=== PATIENT | female | born 1955 | race Caucasian/White ===

== ENCOUNTER 2019-11-30 07:08 | Outpatient (CLI) | payer OTHER, SELFPAY ==
[2019-11-30 07:33] LABS: Basophils Absolute Auto 0.1 K/mm3 (0.0-0.1); Basophils Percent Auto 0.9 % (0.2-1.2); Eosinophils Absolute Auto 0.2 K/mm3 (0-0.3); Eosinophils Percent Auto 3.8 % (0-4.4); Hematocrit 35.6 % (37.0-47.0); Hemoglobin 11.3 g/dL (12.0-15.0); Immature Granulocyte Absolute 0.01 K/mm3 (0.00-0.031); Immature Granulocyte Percent A 0.2 % (0-0.5); Lymphocytes Percent Auto 41.5 % (18.3-44.2); Mean Corpuscular HGB Conc 31.7 g/dl (32-36); Mean Corpuscular Hemoglobin 25.2 pg (26-34); Mean Corpuscular Volume 79.3 fl (80-100); Mean Platelet Volume 9.7 fl (7.4-10.4); Monocytes Absolute Auto 0.6 K/mm3 (0.1-0.6); Monocytes Percent Auto 10.4 % (2.6-8.5); Neutrophils Absolute Auto 2.3 K/mm3 (1.3-6.7); Neutrophils Percent Auto 43.2 % (45.5-73.1); Platelet Count Result 320 k/mm3 (150-375); Red Blood Count 4.49 M/mm3 (4.2-5.4); Red Cell Distribution Width 16.6 % (11.5-14.5); White Blood Count 5.3 K/mm3 (4.5-10.0)
[2019-11-30 07:54] LABS: LDL Cholesterol Direct 141 mg/dL
[2019-11-30 08:15] LABS: Iron 27 ug/dL (37-170)
[2019-11-30 08:16] LABS: Alanine Aminotransferase 16 U/L (4-35); Albumin Level 4.2 g/dL (3.5-5.1); Alkaline Phosphatase 68 U/L (38-126); Anion Gap 9 mmol/L (8-16); Aspartate Amino Transferase 27 U/L (14-36); Bilirubin,Total 0.4 mg/dL (0.2-1.3); Blood Urea Nitrogen 18 mg/dL (7-17); Calcium 9.5 mg/dL (8.4-10.2); Carbon Dioxide 30 mmol/L (22-30); Chloride 101 mmol/L (98-107); Cholesterol 239 mg/dL (0-200); Estimated Glomerular Filt Rate > 60; Glucose 108 mg/dL (65-105); HDL Direct 51 mg/dL; Sodium 140 mmol/L (137-145); Triglycerides 131 mg/dL (<150)
[2019-11-30 08:17] LABS: Potassium 3.9 mmol/L (3.4-5.0)
[2019-11-30 08:25] LABS: Percent Iron Saturation 6 % (20-50)
[2019-11-30 08:47] LABS: Folic Acid 10.7 ng/mL (2.76->20)
== END 2019-11-30 07:09 | disposition home or self-care (01) ==
PROVIDERS: PCP Family Medicine; Visit Provider Family Medicine
DX: E78.5 Hyperlipidemia, unspecified (principal); I10 Essential (primary) hypertension; R53.83 Other fatigue
CPT/HCPCS: 36415; 80053; 80061; 82607; 82746; 83540; 83550; 84443; 85025

== ENCOUNTER 2019-12-14 08:19 | Outpatient (CLI) | payer OTHER, SELFPAY ==
--- NOTE | ~2019-12-14 | XR_ITS ---
XR UGIAC w barium swallow DATE: 12/14/2019 09:23 INDICATION: Diaphragmatic hernia TECHNIQUE: Air-contrast upper gastrointestinal series 0.8 minutes fluoroscopy time DAP: 33.62 73 images COMPARISON: None FINDINGS: There is normal deglutition. No stricture, mucosal fold thickening, erosion or ulceration, diverticulum or intraluminal mass lesion of the esophagus. There is a very small large sliding hiatal hernia, with virtually the entire stomach within the chest . No intraluminal mass lesion or mucosal fold thickening or ulceration of the stomach. The duodenal bulb is normally shaped. The proximal small bowel mucosal pattern is normal. . IMPRESSION: Very large sliding hiatal hernia with virtually the entire stomach in the chest Reviewed, dictated and finalized at [facility]. Reviewed, dictated and finalized at location A.
== END 2019-12-14 08:20 | disposition home or self-care (01) ==
PROVIDERS: PCP Family Medicine; Visit Provider Surgery
DX: K44.9 Diaphragmatic hernia without obstruction or gangrene (principal)
CPT/HCPCS: 74246

== ENCOUNTER 2019-12-16 09:37 | Outpatient (CLI) | payer OTHER, SELFPAY ==
--- NOTE | ~2019-12-16 | XR_ITS ---
EXAMINATION: XR chest 2V DATE: 12/16/2019 10:45 INDICATION: Diaphragmatic hernia without obstruction or gangrene. Preop. TECHNIQUE: Frontal and lateral views of the chest were obtained. COMPARISON: Chest 2 views 03/22/18 FINDINGS: There is a large hiatal hernia. There is mild atelectasis at left lung base. No pleural eff usion or pneumothorax. The heart size is normal. IMPRESSION: 1. Large hiatal hernia. 2. Mild atelectasis at left lung base. Reviewed, dictated and finalized at location [facility].
--- NOTE | 2019-12-16 10:00 | ECG_ITS ---
Measurements Intervals [place] Rate: 62 P: 28 ND: 157 QRS: -4 QRSD: 78 T: 29 QT: 405 QTc: 413 Interpretive Statements SINUS RHYTHM LOW QRS VOLTAGE IN PRECORDIAL LEADS POOR R WAVE PROGRESSION, ANTERIOR LEADS BASELINE ARTIFACT- III, AVF BORDERLINE ECG Electronically Signed On 12-16-2019 10:37:17 CDT by Kelechi Pereira D.O.
[2019-12-16 10:44] LABS: Basophils Percent Auto 0.5 % (0.2-1.2); Eosinophils Absolute Auto 0.1 K/mm3 (0-0.3); Eosinophils Percent Auto 1.9 % (0-4.4); Hematocrit 42.2 % (37.0-47.0); Immature Granulocyte Absolute 0.01 K/mm3 (0.00-0.031); Immature Granulocyte Percent A 0.2 % (0-0.5); Lymphocytes Absolute Auto 1.96 K/mm3 (0.9-3.2); Lymphocytes Percent Auto 33.6 % (18.3-44.2); Mean Corpuscular HGB Conc 30.8 g/dl (32-36); Mean Corpuscular Hemoglobin 25.7 pg (26-34); Mean Corpuscular Volume 83.6 fl (80-100); Mean Platelet Volume 9.4 fl (7.4-10.4); Monocytes Absolute Auto 0.4 K/mm3 (0.1-0.6); Monocytes Percent Auto 7.4 % (2.6-8.5); Neutrophils Absolute Auto 3.3 K/mm3 (1.3-6.7); Neutrophils Percent Auto 56.4 % (45.5-73.1); Platelet Count Result 337 k/mm3 (150-375); Red Blood Count 5.05 M/mm3 (4.2-5.4); Red Cell Distribution Width 19.9 % (11.5-14.5); White Blood Count 5.8 K/mm3 (4.5-10.0)
[2019-12-16 10:56] LABS: Anion Gap 8 mmol/L (8-16); Blood Urea Nitrogen 16 mg/dL (7-17); Calcium 9.4 mg/dL (8.4-10.2); Carbon Dioxide 31 mmol/L (22-30); Chloride 101 mmol/L (98-107); Estimated Glomerular Filt Rate > 60; Glucose 97 mg/dL (65-105); Potassium 3.7 mmol/L (3.4-5.0); Sodium 140 mmol/L (137-145)
== END 2019-12-16 09:38 | disposition home or self-care (01) ==
PROVIDERS: PCP Family Medicine; Visit Provider Surgery
DX: Z01.818 Encounter for other preprocedural examination (principal); K44.0 Diaphragmatic hernia with obstruction, without gangrene; I10 Essential (primary) hypertension; D64.9 Anemia, unspecified; R94.31 Abnormal electrocardiogram [ECG] [EKG]
CPT/HCPCS: 36415; 71046; 80048; 85025; 86850; 86900; 86901; 93005

== ENCOUNTER 2019-12-18 09:50 | Outpatient (CLI) | payer OTHER, SELFPAY ==
--- NOTE | ~2019-12-18 | CT_ITS ---
EXAMINATION: CT abdomen wo con DATE: 12/18/2019 10:27 INDICATION: Diaphragmatic hernia with obstruction TECHNIQUE: Computed tomography (CT) of the abdomen was performed without intravenous contrast. The do se-length product was 199.55 mGy-cm. Automated exposure control and iterative reconstruction techniqu e were employed. COMPARISON: CT dated 09/27/2012. FINDINGS: There is a large Bochdalek hernia with gastric volvulus. No evidence for obstruction. There are gallstones. Heart size normal. No significant pleural or pericardial effusion. Mild atherosclerosis without aneur ysm. There is nonobstructing left nephrolithiasis. The liver, spleen, pancreas, adrenal glands are un remarkable. Nonobstructive bowel gas pattern. No free air or free fluid. IMPRESSION: 1. Large Bochdalek hernia with gastric volvulus. No obstruction. 2: Nonobstructing left nephrolithiasis. 3: Cholelithiasis. Reviewed, dictated and finalized at location [facility]. 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
== END 2019-12-18 09:51 | disposition home or self-care (01) ==
PROVIDERS: PCP Family Medicine; Visit Provider Surgery
DX: K44.9 Diaphragmatic hernia without obstruction or gangrene (principal); K80.20 Calculus of gallbladder without cholecystitis without obstruction; N20.0 Calculus of kidney
CPT/HCPCS: 74150

== ENCOUNTER 2019-12-20 01:09 | Outpatient (CLI) | payer OTHER, SELFPAY ==
[2019-12-20 20:51] LABS: SARS-CoV-2 RNA PCR Negative
== END 2019-12-20 01:10 | disposition home or self-care (01) ==
LOC: ANHCOVIDDT 01:09
PROVIDERS: PCP Family Medicine; Visit Provider Surgery
DX: Z01.812 Encounter for preprocedural laboratory examination (principal); Z20.828 Contact with and (suspected) exposure to other viral communicable diseases
CPT/HCPCS: 87635; C9803; U0003

== ENCOUNTER 2019-12-23 13:33 | Observation (INO) | payer OTHER, SELFPAY ==
[2019-12-16 09:49] VITALS: BP 137/90; PULSE 77; RESP 16; TEMP 36.8; O2SAT 96; BMI 33.4
[2019-12-22] VITALS (13 sets, daily range): BP systolic 136–168; BP diastolic 79–99; PULSE 69–95; RESP 12–20; TEMP 35.6–36.6; O2SAT 92–100; BMI 32.3
--- NOTE | 2019-12-22 08:55 | WPDHPUPDATE1 ---
History and Physical Update Update Date/Time: 12/22/19 08:55 History and Physical has been reviewed, including an updated exam of the patient. There are NO changes in the patient's condition. Risks, benefits, and alternatives have been discussed and questions answered. Patient agrees to proceed with procedure.
[2019-12-22] MEDS: LACTATED RINGERS 1,000 ML 30 ML IV CONT ×2 (09:06→14:58)
--- NOTE | 2019-12-22 09:40 | WPDANESEPPF ---
Anes - Initial Pre Proc Eval Procedure: Operation Date: 12/22/19 10:30 Proposed Procedures p Laparoscopic Repair Paraesophageal Hiatal Hernia with Reagan Fundoplication - Champ Blackmon MD Date/Time: 12/22/19 09:40 Surgeon: Champ Blackmon MD Pre Op Diagnosis: parasophageal hiatal hernia with obstruction Patient Data Age: 64 Gender: F Height: 4 ft 10 in Weight: 70.6 kg Last Vital Signs Temp 36.5 C 12/22/19 09:18 Pulse 69 12/22/19 09:18 Resp 16 12/22/19 09:18 BP 151/89 H 12/22/19 09:18 Pulse Ox 100 12/22/19 09:18 Allergies Allergy/AdvReac Type Severity Reaction Status Date / Time No Known Allergies Allergy Verified 12/22/19 08:36 Home Medications Medication Instructions Recorded Confirmed Type ferrous sulfate 325 mg (65 mg 325 mg PO DAILY #90 tablet 11/30/19 12/22/19 Rx iron) tablet cholecalciferol (vitamin D3) 250 mcg PO DAILY 12/16/19 12/22/19 History [Vitamin D3] omeprazole 40 mg PO QAM 12/16/19 12/22/19 History quinapril-hydrochlorothiazide 1 tablet PO QAM 12/16/19 12/22/19 History raloxifene 60 mg PO DAILY 12/22/19 12/22/19 History Patient hx anesthesia problems: none Family hx anesthesia problems: none PMFSH Past Medical History Medical History Benign neoplasm of rectum Essential (primary) hypertension GERD (gastroesophageal reflux disease) Hiatal hernia Hyperlipidemia Non-cardiac chest pain Vitamin D deficiency, unspecified Surgical History Surgical History H/O unilateral oophorectomy History of S/P cataract surgery S/P ectopic S/P partial hysterectomy Family History Family History Mother Hypertension Patient's mother is in good health Acute myocardial infarction Father Patient's father is in good health Malignant neoplasm of prostate Family history of Parkinson's disease Patient's father is Grandparent Malignant neoplasm of prostate Family history of emphysema Family history of dementia Social History Social History Smoking status: Never smoker Second hand tobacco smoke exposure: No Alcohol intake: current Drinks per week: 1 Substance use: never Substance use type: does not use Living arrangements: with family Gender identity (if verbalized by the patient): Female Spiritual care concerns: No Agree to blood products: Yes Anes - Eval Final PreProcedure Day of Procedure 12/22/19 09:40 Patient weight: obese Heart: regular rate and rhythm Lungs: clear to auscultation Airway: Mallampati scale class II Neurological: alert and oriented Last oral intake: >/= 8 hours ASA classification: II Emergent: no Anesthetic plan: proceed Anesthesia type and monitoring: general ETT and standard monitoring Informed Consent: The patient's anesthetic plan and its attendant risks and benefits were discussed with the patient/family/POA. Questions were solicited and answers provided to the satisfaction of the patient/family/POA.
[2019-12-22] MEDS: ceFAZolin 2 GM/D5W 50 ML 2 GM/50 ML BAG IVPB (10:38)
[2019-12-22] MEDS: BUPIVACAINE/EPINEPHRINE 0.25% 50 ML VIAL INFILTRATE (12:24)
[2019-12-22] MEDS: fentaNYL CITRATE INJ (*CRX) 100 MCG/2 ML VIAL 25 MCG IV PUSH ×6 (15:04→15:40)
[2019-12-22] MEDS: hydrALAZINE HCL 20 MG/ML VIAL 10 MG IV PUSH (15:19)
--- NOTE | 2019-12-22 15:28 | PM.PROC ---
Procedure Note - Detailed Date of procedure: 12/22/19 Pre-op diagnosis: parasophageal hiatal hernia with obstruction Paraesophageal hiatal hernia with obstruction Post-op diagnosis: same Procedure performed: Repair paraesophageal hiatal hernia with Reagan fundoplication Description of procedure: The patient was taken to surgery and induced into general anesthesia. The entire abdomen was prepped and draped. Trocars were placed in the usual fashion. A Veress needle was used initially to insufflate. Then trocars were placed using direct visualization. We placed the liver retractor at the right lateral 12 mm port. The lateral segment of the left lobe of the liver was elevated to expose the diaphragmatic hernia. Most of the stomach was in the chest. About the lower 4th of the stomach was still in the abdomen. I used the LigaSure to divide the hepatogastric ligament and exposed the right nini. From there we placed traction on the stomach and reduced the stomach and the lesser omentum as much as possible. I then started some blunt dissection on the right side of the hernia. I brought a fair amount of the hernia sac down into the abdomen with this dissection. I then stopped and went to the left side. I took down a few adhesions of the greater omentum and brought more of the stomach and the greater omentum back into the abdomen. I then exposed the greater curvature the stomach and divided it from the omentum. This allowed entry into the lesser sac. I then continued to divide the short gastrics along the greater curvature of the stomach with the LigaSure. Eventually we went up to the cardia of the stomach and mobilized that as well. Now nearly all the stomach was in the abdomen. I exposed the hernia sac at the edges of the diaphragm and left nini. I gently pulled the hernia sac back through the diaphragm and then started dividing the edges of the hernia sac from the diaphragm and the left nini. Once I entered the mediastinum I was then able to dissect more the hernia sac back towards the abdomen. I eventually reduced all of the left side of the hernia sac. I went ahead and used the LigaSure to divide the hernia sac from the stomach and diaphragm. It was removed from the abdomen and discarded. I mobilized a bit of the lower esophagus during this part of the dissection as well. We then went back and looked at the right side of the hernia. There was still quite a bit of hernia sac here as well. I continued dissection of the hernia sac from the mediastinum bringing it down into the abdomen using primarily blunt dissection with occasional coagulation with the LigaSure. Once the hernia sac year was fully reduced, I divided it with the LigaSure and it was removed from the abdomen. It was discarded as well. I had stayed away from the esophagus during the dissection to avoid injury to the vagus nerves. At this point, I dissected more of the back of the stomach and esophagus from the posterior nini. We were able to pass a Adriel drain behind the esophagus. It was clipped to itself and was able to be used for retraction and elevation of the esophagus. At this point, I proceeded to dissect the esophagus from the mediastinum more fully. This was also done with the LigaSure and was essentially bloodless. We dissected very high up into the mediastinum to mobilize all of the esophagus. I recheck our esophageal length and it was now excellent. There was probably 6 or 7 cm of esophagus that was intra-abdominal. We then closed the 2 crura of the diaphragm with 0 Ethibond and the Endo Stitch device. These were interrupted suture. A small diaphragmatic defect was left for the esophagus. From there, the upper stomach was passed retrograde to the esophagus and the fundoplication was initially formed. I used the shoe shine technique to ensure there was no spiraling of the stomach on the esophagus. I clamped the fundoplication together in the position that it would be sutured. We
--- NOTE | 2019-12-22 16:28 | ADMGEN ---
This patient, Mary Mccrary, was admitted to Medical Room 340-01. Patient/family oriented to hospital policies and general routines including ID bracelet, bed and alarms, visiting hours, pain management, procedures, bathroom and other care routines, personal items, smoking policy, room service/diet, and visiting hours. Information on how to activate the Rapid Response Team has been discussed. Patient/Family are encouraged to report perceived risks to care and to ask questions if they do not understand what they are told or what they should do.
[2019-12-22] MEDS: hydroCHLOROthiazide 12.5 MG CAPSULE PO (17:09)
[2019-12-22] MEDS: lisinopriL 10 MG TABLET PO (17:09)
[2019-12-22] MEDS: HYDROcodone/acetaminophen (*CRX) 10-325 MG TABLET 1 TAB PO ×2 (17:09→22:53)
[2019-12-22] MEDS: MORPHINE SULFATE (*CRX) 2 MG/ML INJ 1 MG IV PUSH (18:32)
[2019-12-22] MEDS: ENOXAPARIN 30 MG/0.3 ML SYRINGE SUB-Q (20:40)
[2019-12-23] MEDS: MORPHINE SULFATE (*CRX) 4 MG/ML INJ 2 MG IV PUSH (05:28)
[2019-12-23 06:12] LABS: Hematocrit 36.6 % (37.0-47.0); Hemoglobin 11.7 g/dL (12.0-15.0); Mean Corpuscular Hemoglobin 26.7 pg (26-34); Mean Corpuscular Volume 83.6 fl (80-100); Mean Platelet Volume 10.2 fl (7.4-10.4); Platelet Count Result 273 k/mm3 (150-375); Red Blood Count 4.38 M/mm3 (4.2-5.4); Red Cell Distribution Width 20.3 % (11.5-14.5); White Blood Count 10.5 K/mm3 (4.5-10.0)
[2019-12-23 06:22] LABS: Anion Gap 6 mmol/L (8-16); Blood Urea Nitrogen 13 mg/dL (7-17); Calcium 8.5 mg/dL (8.4-10.2); Carbon Dioxide 29 mmol/L (22-30); Chloride 100 mmol/L (98-107); Estimated Glomerular Filt Rate > 60; Glucose 115 mg/dL (65-105); Potassium 3.5 mmol/L (3.4-5.0); Sodium 135 mmol/L (137-145)
[2019-12-23 06:36] VITALS: BP 132/79; PULSE 83; RESP 16; TEMP 36.2; O2SAT 92
--- NOTE | 2019-12-23 08:18 | WPDANESPN ---
Anes - Prog Note Post-Op Date/Time: 12/23/19 08:18 Cardiovascular status: normal Respiratory status: normal Airway patency: baseline Mental status: baseline Post-Op hydration status: normal Vital Signs: Last Vital Signs Temp 36.2 C L 12/23/19 06:36 Pulse 83 12/23/19 06:36 Resp 16 12/23/19 06:36 BP 132/79 12/23/19 06:36 Pulse Ox 92 12/23/19 06:36 Pain Score (VAS): 02/25 I/O: Intake & Output 12/22/19 12/23/19 12/23/19 23:59 07:59 15:59 Intake Total 25 Output Total 450 Balance 25 -450 Laboratory Tests 12/23/19 05:46 12/23/19 05:46 12/23/19 12/23/19 05:46 05:46 WBC 10.5 H RBC 4.38 Hgb 11.7 L Hct 36.6 L MCV 83.6 MCH 26.7 MCHC 32.0 RDW 20.3 H Plt Count 273 MPV 10.2 Sodium 135 L Potassium 3.5 Chloride 100 Carbon Dioxide 29 Anion Gap 6 L BUN 13 Creatinine 0.80 Estim Creat Clear Calc Not Reportable Estimated GFR > 60 Glucose 115 H Calcium 8.5 Post-procedural complaints: none Patient Feedback: Patient satisfied with anesthetic care.
[2019-12-23] MEDS: ENOXAPARIN 30 MG/0.3 ML SYRINGE SUB-Q ×2 (08:57→20:48)
[2019-12-23] MEDS: RALOXIFENE HCL (*CHEMO) 60 MG TABLET PO (08:57)
[2019-12-23] MEDS: PANTOPRAZOLE 40 MG TABLET PO (08:57)
[2019-12-23] MEDS: hydroCHLOROthiazide 12.5 MG CAPSULE PO (08:57)
[2019-12-23] MEDS: lisinopriL 10 MG TABLET PO (08:57)
[2019-12-23 10:00] VITALS: BP 124/68; PULSE 75; RESP 16; TEMP 36; O2SAT 95
[2019-12-23] MEDS: HYDROcodone/acetaminophen (*CRX) 5-325 MG TABLET 1 TAB PO (11:19)
--- NOTE | 2019-12-23 13:04 | PM.PNGS ---
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 Laparoscopic repair paraesophageal hiatal hernia. Will slowly advance diet. Ambulate today and stop IV fluids. If continues to improve, should be okay to discharge tomorrow. Discussed instructions with her for post discharge. Also explained that she will likely encountered dysphagia. (2) Iron deficiency anemia: Qualifiers: Iron deficiency anemia type: unspecified iron deficiency Qualified Code(s): D50.9 - Iron deficiency anemia, unspecified Code(s): D50.9 - Iron deficiency anemia, unspecified Status: Chronic Assessment and Plan: Will continue patient on ferrous sulfate. H&H slightly lower postop at this likely due to dilutional effects. Recheck again tomorrow. Subjective Subjective Date/Time Seen: 12/23/19 13:04 Post Op day: 1 Patient reports: feels better, pain is less, tolerating liquids well and no bowel movement Exam GI: Inspection: non-distended and incision (Incisions dry in all healing well) GI Palp: Yes Soft to palpation, Yes Tenderness to palpation present (GI) (Mild) and No Palpable mass present Auscultation: normal bowel sounds Objective Data Vital Signs Vital Signs: Vital Signs - 24 hr 12/22/19 14:38 12/22/19 14:50 12/22/19 15:05 Temperature 36.6 C Pulse Rate 88 95 86 Respiratory Rate 18 20 18 Blood Pressure 163/93 H 160/99 H 168/95 H Pulse Oximetry 97 99 99 12/22/19 15:20 12/22/19 15:35 12/22/19 15:50 Temperature Pulse Rate 86 77 94 Respiratory Rate 12 12 20 Blood Pressure 157/93 H 138/88 136/82 Pulse Oximetry 99 97 94 12/22/19 16:00 12/22/19 16:15 12/22/19 16:45 Temperature 35.6 C L 35.9 C L 35.9 C L Pulse Rate 95 90 90 Respiratory Rate 18 18 18 Blood Pressure 154/84 H 161/85 H 153/85 H Pulse Oximetry 95 95 93 12/22/19 17:45 12/22/19 20:14 12/22/19 21:45 Temperature 35.9 C L 36.6 C Pulse Rate 90 89 Respiratory Rate 18 16 Blood Pressure 145/81 H 143/79 H Pulse Oximetry 92 92 94 12/23/19 06:36 12/23/19 10:00 Temperature 36.2 C L 36.0 C L Pulse Rate 83 75 Respiratory Rate 16 16 Blood Pressure 132/79 124/68 Pulse Oximetry 92 95 Intake/Output Intake/Output: Intake & Output 12/20/19 12/21/19 12/22/19 12/23/19 23:59 23:59 23:59 23:59 Intake Total 525 1260 Output Total 1050 Balance 525 210 Meds/Results Medications: Active Medications Generic Name Dose Route Start Last Admin Trade Name Freq PRN Reason Stop Dose Admin Acetaminophen 500 mg 12/22/19 15:51 Acetaminophen 500 Mg Tablet PO Q6H PRN Mild Pain (1-3) or Fever Hydrocodone Bitart/Acetaminophen 1 tab 12/22/19 15:51 12/23/19 11:19 Hydrocodone/Acetaminophen (*Crx) 5-325 Mg Tablet PO 1 tab Q4H PRN Administration Pain Rated 4-6 Hydrocodone Bitart/Acetaminophen 1 tab 12/22/19 15:51 12/22/19 22:53 Hydrocodone/Acetaminophen (*Crx) 10-325 Mg Tablet PO 1 tab Q6H PRN Administration Pain Rated 7-10 Diphenhydramine HCl 25 mg 12/22/19 15:51 Diphenhydramine Hcl Inj 50 Mg/Ml Vial IV PUSH Q6H PRN Itching Enoxaparin Sodium 30 mg 12/22/19 21:00 12/23/19 08:57 Enoxaparin 30 Mg/0.3 Ml Syringe SUB-Q 30 mg Q12HR KEREN Administration Hydrochlorothiazide 12.5 mg 12/22/19 17:00 12/23/19 08:57 Hydrochlorothiazide 12.5 Mg Capsule PO 01/22/20 17:01 12.5 mg QAM KEREN Administration Lisinopril 10 mg 12/22/19 17:00 12/23/19 08:57 Lisinopril 10 Mg Tablet PO 10 mg QAM KEREN Administration Morphine Sulfate 1 mg 12/22/19 15:51 12/22/19 18:32 Morphine Sulfate (*Crx) 2 Mg/Ml Inj IV PUSH 1 mg Q2H PRN Administration Pain Rated 4-6 Morphine Sulfate 2 mg 12/22/19 15:51 12/23/19 05:28 Morphine Sulfate (*Crx) 4 Mg/Ml Inj IV PUSH 2
[2019-12-23 14:00] VITALS: BP 134/76; PULSE 79; RESP 16; TEMP 35.9; O2SAT 96
[2019-12-23] MEDS: HYDROcodone/acetaminophen (*CRX) 10-325 MG TABLET 1 TAB PO ×2 (16:48→22:50)
[2019-12-23 20:41] VITALS: BP 144/76; PULSE 84; RESP 16; TEMP 36.6; O2SAT 94
[2019-12-24 04:00] VITALS: BP 137/79; PULSE 76; RESP 16; TEMP 36.6; O2SAT 95
[2019-12-24] MEDS: HYDROcodone/acetaminophen (*CRX) 5-325 MG TABLET 1 TAB PO ×2 (04:57→09:48)
[2019-12-24 06:51] LABS: Hematocrit 37.6 % (37.0-47.0); Mean Corpuscular HGB Conc 31.9 g/dl (32-36); Mean Corpuscular Hemoglobin 26.7 pg (26-34); Mean Corpuscular Volume 83.6 fl (80-100); Mean Platelet Volume 10.7 fl (7.4-10.4); Platelet Count Result 268 k/mm3 (150-375); Red Cell Distribution Width 20.5 % (11.5-14.5); White Blood Count 9.4 K/mm3 (4.5-10.0)
[2019-12-24 07:13] LABS: Anion Gap 3 mmol/L (8-16); Blood Urea Nitrogen 9 mg/dL (7-17); Calcium 8.9 mg/dL (8.4-10.2); Carbon Dioxide 35 mmol/L (22-30); Chloride 97 mmol/L (98-107); Estimated Glomerular Filt Rate > 60; Glucose 105 mg/dL (65-105); Potassium 3.5 mmol/L (3.4-5.0); Sodium 135 mmol/L (137-145)
[2019-12-24] MEDS: hydroCHLOROthiazide 12.5 MG CAPSULE PO (08:00)
[2019-12-24] MEDS: PANTOPRAZOLE 40 MG TABLET PO (08:00)
[2019-12-24] MEDS: RALOXIFENE HCL (*CHEMO) 60 MG TABLET PO (08:00)
[2019-12-24] MEDS: lisinopriL 10 MG TABLET PO (08:00)
[2019-12-24] MEDS: ENOXAPARIN 30 MG/0.3 ML SYRINGE SUB-Q (08:00)
--- NOTE | 2019-12-24 09:43 | PM.DS ---
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 Blackmon in 2 wks DS: Summary Hospital Course Reason for hospitalization: paraesophageal hernia c obstruction Hospital Course: The patient presented on 12/21 for repair of obstructed paraesophageal hernia. Patient was taken to the operating room and paraesophageal hernia repair as well as Reagan fundoplication were done by Dr. Blackmon. Please see full operative report for details of that procedure. Postoperatively the patient has done very well. She is tolerating a regular diet at this time and her pain is well controlled with p.o. analgesia. The patient will be sent home with routine postoperative care instructions and follow-up with Dr. Blackmon in 2 weeks. Status at Discharge Functional status at discharge: independent ambulation Overall status at discharge: patient is progressing back to baseline Time Spent with Patient Time attestation: Total time spent providing and/or coordinating discharge services: Time spent: Less than 30 minutes Exam Const: General: cooperative, healthy appearing, comfortable and no acute distress Orientation/consciousness: patient oriented x3 Resp: Effort & Inspection: normal respiratory effort Auscultation: clear to auscultation bilaterally Cardio: Rate: regular rate Rhythm: regular rhythm GI: Inspection: normal to inspection and incision GI Palp: Yes abdominal tenderness, Yes Soft to palpation, Yes Tenderness to palpation present (GI) and No Guarding due to palpation present (GI) Other: soft, sl dist, shyam TTP, incisions C/D/I DS: Data Data Completed and Pending Labs on day of discharge: Labs from last 24 hours 12/24/19 12/24/19 06:27 06:27 WBC 9.4 RBC 4.50 Hgb 12.0 Hct 37.6 MCV 83.6 MCH 26.7 MCHC 31.9 L RDW 20.5 H Plt Count 268 MPV 10.7 H Sodium 135 L Potassium 3.5 Chloride 97 L Carbon Dioxide 35 H Anion Gap 3 L BUN 9 Creatinine 0.70 Estim Creat Clear Calc Not Reportable Estimated GFR > 60 Glucose 105 Calcium 8.9 Discharge Plan Discharge Attending physician on discharge: Myesha Guzman Discharging Clinician: Myesha Guzman Anticipated Discharge Date/Time: 12/24/19 09:42 Patient Disposition: Home, Self-Care Activity: may shower and other - see discharge instructions Diet: as tolerated Wound Care Instructions: follow printed instructions Discharge Instructions: 1. May shower and wash wounds with soap and water after discharge. 2. Call office for: -Wound increasingly painful or bleeding -Vomiting -Fever of greater than 101 degrees 3. Expect some blood on dressing and old blood on skin. 4. If no bowel movement for three days, take 1 oz. (30 ml) Milk of Magnesia, if no results, take Fleets enema. 5. No heavy lifting > 15-20 pounds for 2 weeks. 6. No driving for 3 days or while taking narcotic pain medications. 7. Up walking 10-30 minutes three times per day. 8. Resume previous home medications. 9. Follow-up 10-14 days in office for wound check or as previously scheduled. 10. Oral pain medications prescription to be sent home with patient. 11. NUTRITION: Start out by drinking fluids and increase your diet as tolerated. If you experience nausea, try dry toast, crackers, and 7-UP. If nausea or vomiting persists, contact your surgeon?s office. 12. Okay to slowly advance to regular diet but chew food slowly, small bites, small amounts. May need to eat more frequently than 3
== END 2019-12-24 12:25 | disposition home or self-care (01) ==
LOC: ANHSURGERY 16:57 → ANH3MED 12-24 01:42
PROVIDERS: Admitting Provider Surgery; PCP Family Medicine; Visit Provider Surgery
PROC: 0DV44ZZ Restriction of Esophagogastric Junction, Percutaneous Endoscopic Approach (ICD-10-PCS; CPT 43281; principal; 2019-12-22 10:30)
DX: K44.0 Diaphragmatic hernia with obstruction, without gangrene (principal); I10 Essential (primary) hypertension; D50.9 Iron deficiency anemia, unspecified; K21.9 Gastro-esophageal reflux disease without esophagitis; E78.5 Hyperlipidemia, unspecified; E55.9 Vitamin D deficiency, unspecified; Z79.899 Other long term (current) drug therapy
CPT/HCPCS: 43281; 36415; 80048; 85027; A9270; C1713; G0378; J0360; J0690; J1650; J2250; J2270; J2704; J3010; J7120

== ENCOUNTER 2020-02-27 12:44 | Outpatient (CLI) | payer OTHER, SELFPAY ==
[2020-02-27 13:40] LABS: Basophils Absolute Auto 0.1 K/mm3 (0.0-0.1); Basophils Percent Auto 0.9 % (0.2-1.2); Eosinophils Absolute Auto 0.2 K/mm3 (0-0.3); Eosinophils Percent Auto 3.1 % (0-4.4); Hematocrit 41.2 % (37.0-47.0); Hemoglobin 13.7 g/dL (12.0-15.0); Immature Granulocyte Absolute 0.01 K/mm3 (0.00-0.031); Immature Granulocyte Percent A 0.2 % (0-0.5); Lymphocytes Absolute Auto 2.39 K/mm3 (0.9-3.2); Lymphocytes Percent Auto 36.8 % (18.3-44.2); Mean Corpuscular HGB Conc 33.3 g/dl (32-36); Mean Corpuscular Hemoglobin 27.8 pg (26-34); Mean Corpuscular Volume 83.6 fl (80-100); Mean Platelet Volume 10.5 fl (7.4-10.4); Monocytes Absolute Auto 0.4 K/mm3 (0.1-0.6); Monocytes Percent Auto 5.7 % (2.6-8.5); Neutrophils Absolute Auto 3.5 K/mm3 (1.3-6.7); Neutrophils Percent Auto 53.3 % (45.5-73.1); Platelet Count Result 289 k/mm3 (150-375); Red Blood Count 4.93 M/mm3 (4.2-5.4); White Blood Count 6.5 K/mm3 (4.5-10.0)
[2020-02-27 13:59] LABS: Alanine Aminotransferase 18 U/L (4-35); Albumin Level 4.1 g/dL (3.5-5.1); Alkaline Phosphatase 64 U/L (38-126); Anion Gap 8 mmol/L (8-16); Aspartate Amino Transferase 33 U/L (14-36); Bilirubin,Total 0.3 mg/dL (0.2-1.3); Blood Urea Nitrogen 11 mg/dL (7-17); Calcium 9.1 mg/dL (8.4-10.2); Carbon Dioxide 27 mmol/L (22-30); Chloride 104 mmol/L (98-107); Estimated Glomerular Filt Rate > 60; Glucose 130 mg/dL (65-105); Potassium 3.6 mmol/L (3.4-5.0); Sodium 139 mmol/L (137-145)
== END 2020-02-27 12:45 | disposition home or self-care (01) ==
PROVIDERS: PCP Family Medicine; Visit Provider Family Medicine
DX: R19.7 Diarrhea, unspecified (principal)
CPT/HCPCS: 36415; 80053; 84443; 85025; 87045; 87046; 87324; 87427

== ENCOUNTER → 2020-03-14 09:53 | Outpatient (CLI) | payer OTHER, SELFPAY ==
--- NOTE | ~2020-03-14 | US_ITS ---
EXAMINATION: US abdomen complete EXAM DATE: 03/14/2020 10:17 INDICATION: Diarrhea, abdominal pain. TECHNIQUE: Multiple grayscale and Doppler images of the complete abdomen were obtained (by a technolo gist who performed the scan) and subsequently reviewed. Comparison is made to prior examination from 05/09/2013. FINDINGS: The abdominal aorta is normal in caliber. Visualized portion IVC is patent. The pancreatic head a nd body are normal in appearance. The pancreatic tail is not visualized. The liver has normal echogenicity and contour. There are no focal liver lesions identified. There is no evidence of intrahepatic biliary duct dilation. Portal venous flow was seen in the hepatopedal , normal direction and has normal Doppler waveform. Common bile duct measures 5 mm, which is normal. The gallbladder wall is normal in thickness, with ex pected amount of distention. No sonographic evidence of pericholecystic fluid. Stone filled gallbla dder. Technologist performing exam reports patient did not demonstrate sonographic Valverde's sign. P dominguez note that this sign is less reliable in patients who have received pain medication. Right kidney: There is normal contour and echogenicity. It measures 8.0 x 3.5 x 4.5 centimeters. T here are no focal renal lesions identified. There is no hydronephrosis. Left kidney: There is normal contour and echogenicity. It measures 9.7 x 4.6 x 4.3 centimeters. Th ere are no focal renal lesions identified. There is no hydronephrosis. The spleen measures 8.7 centimeters and is morphologically normal. IMPRESSION: Cholelithiasis. Reviewed, dictated and finalized at location A. HAND IMPRESSION: Cholelithiasis.
== END ==
PROVIDERS: PCP Family Medicine; Visit Provider Family Medicine
DX: R19.7 Diarrhea, unspecified (principal); K80.20 Calculus of gallbladder without cholecystitis without obstruction
CPT/HCPCS: 76700

== ENCOUNTER 2020-04-15 00:01 | Observation (INO) | payer OTHER, SELFPAY ==
--- NOTE | ~2020-04-15 | XR_ITS ---
XR abdomen NG/feed tube insert DATE: 04/15/2020 04:18 INDICATION: NG tube placement TECHNIQUE: Portable upright AP view on April 15, 2020 at 0417 hours COMPARISON: None FINDINGS: A nasogastric tube is coiled once in the body of the stomach. Bilateral renal excretion of contrast material is noted from earlier CT abdomen pelvis examination. IMPRESSION: NG tube in stomach Reviewed, dictated and finalized at [facility]. Reviewed, dictated and finalized at [facility]. STERED NURSE FLOAT POOL IMPRESSION: NG tube in stomach
--- NOTE | ~2020-04-15 | CT_ITS ---
EXAMINATION: CT abdomen pelvis w con DATE: 04/15/2020 02:05 INDICATION: Abdominal pain. TECHNIQUE: Computed tomography (CT) of the abdomen and pelvis was performed with 100 mL Omnipaque 350 intravenous contrast. Automated exposure control and iterative reconstruction technique were employe d. The dose-length product was 354.12 mGy-cm. COMPARISON: CT abdomen 12/18/2019 FINDINGS: The visualized portions of the lung bases demonstrate mild atelectasis. A calcified right l funmilayo nodule is consistent with old granulomatous disease. There is a 5 mm nodule in left lower lobe th at is new. No pleural effusion. The heart size is normal. No pericardial effusion. There are changes of fundoplication of the stomach. The liver demonstrates a 1.9 cm mass in right hepatic lobe without change in size, likely benign. There are gallstones in the gallbladder, which is normal in size. The spleen, pancreas, adrenal glands, and right kidney are normal. There is a 5 mm stone in left kidney. There is a right inguinal hernia containing fat. There is diverticulosis of the colon without evidenc e of diverticulitis. The appendix is not visualized. There are multiple dilated loops of small bowel without focal transition point. There is an umbilical hernia containing fat. There are no pathologica lly enlarged lymph nodes. There is no free intraperitoneal fluid. There is severe lumbar and lower th oracic spondylosis. There is a chronic compression fracture of L1. IMPRESSION: 1. Dilated small bowel without focal transition point, consistent with adynamic ileus versus partial small bowel obstruction. 2. 5 mm pulmonary nodule, probably benign. Noncontrast chest CT is recommended in 6 months. Reviewed, dictated and finalized at [facility]. [employer]
[2020-04-15 00:19] VITALS: BP 135/91; PULSE 73; RESP 18; TEMP 36.4; O2SAT 98
[2020-04-15 00:23] LABS: Basophils Absolute Auto 0.1 K/mm3 (0.0-0.1); Basophils Percent Auto 0.5 % (0.2-1.2); Eosinophils Absolute Auto 0.3 K/mm3 (0-0.3); Eosinophils Percent Auto 2.7 % (0-4.4); Hematocrit 41.9 % (37.0-47.0); Hemoglobin 13.7 g/dL (12.0-15.0); Immature Granulocyte Absolute 0.02 K/mm3 (0.00-0.031); Immature Granulocyte Percent A 0.2 % (0-0.5); Lymphocytes Percent Auto 22.5 % (18.3-44.2); Mean Corpuscular HGB Conc 32.7 g/dl (32-36); Mean Corpuscular Hemoglobin 29.5 pg (26-34); Mean Corpuscular Volume 90.1 fl (80-100); Mean Platelet Volume 9.9 fl (7.4-10.4); Monocytes Absolute Auto 0.7 K/mm3 (0.1-0.6); Monocytes Percent Auto 6.8 % (2.6-8.5); Neutrophils Absolute Auto 7.2 K/mm3 (1.3-6.7); Neutrophils Percent Auto 67.3 % (45.5-73.1); Platelet Count Result 274 k/mm3 (150-375); Red Blood Count 4.65 M/mm3 (4.2-5.4); Red Cell Distribution Width 16.3 % (11.5-14.5); White Blood Count 10.7 K/mm3 (4.5-10.0)
--- NOTE | 2020-04-15 00:23 | ED.GENADULT ---
HPI - General Adult General Chief complaint: Abdominal Pain Stated complaint: gallbladder attack Time Seen by Provider: 04/15/20 00:03 Source: RN notes reviewed History of Present Illness HPI narrative: Patient presents to emergency department from home for abdominal pain. Patient states that pain began this evening is located across the bilateral upper abdomen was worse in the right upper quadrant described as sharp and stabbing. States that at that time she taken Tylenol and ibuprofen and that has helped with the pain she denies having nausea vomiting or diarrhea with the symptoms states she does have a history of gallstones and believes she is having a gallbladder attack she denies any fever chills chest pain shortness of breath or any other symptoms Related Data Home Medications Medication Instructions Recorded Confirmed cholecalciferol (vitamin D3) 250 mcg PO DAILY 12/16/19 03/27/20 [Vitamin D3] raloxifene 60 mg PO DAILY 12/22/19 03/27/20 Allergies Allergy/AdvReac Type Severity Reaction Status Date / Time No Known Allergies Allergy Verified 03/27/20 10:13 Review of Systems Review of Systems: Narrative: Gen.: Denies fevers or chills ENT: Denies congestion Respiratory: Denies shortness of breath or cough CV: Denies chest pain or palpitations GI: See HPI Musculoskeletal: Denies back pain or muscle pain Neuro: Denies numbness, tingling, weakness or focal weakness Skin: Denies rash Except as documented, all other systems reviewed and negative [facility] Past Medical History Medical History Benign neoplasm of rectum BMI 33.0-33.9,adult Essential (primary) hypertension GERD (gastroesophageal reflux disease) Hiatal hernia Hyperlipidemia Non-cardiac chest pain Vitamin D deficiency, unspecified Surgical History Surgical History H/O unilateral oophorectomy History of History of repair of hiatal hernia 12/22/19: Paraesophageal hiatal hernia repair S/P cataract surgery S/P ectopic S/P partial hysterectomy Family History Family History Mother Hypertension Patient's mother is in good health Acute myocardial infarction Father Patient's father is in good health Malignant neoplasm of prostate Family history of Parkinson's disease Patient's father is Grandparent Malignant neoplasm of prostate Family history of emphysema Family history of dementia Social History Social History Smoking status: Never smoker Second hand tobacco smoke exposure: No Alcohol intake: never Drinks per week: 1 Substance use: never Substance use type: does not use Gender identity (if verbalized by the patient): Female Spiritual care concerns: No Agree to blood products: Yes Exam Narrative: Exam Narrative: APPEARANCE: No acute distress, nontoxic, resting in bed HEENT: Normocephalic, atraumatic, OMM RESPIRATORY: No respiratory distress, clear to auscultation bilaterally with no rhonchi wheezing or rales CARDIOVASCULAR: RRR s murmur ABDOMINAL: Soft, nondistended, tender palpation epigastric and right upper quadrant no tenderness left lower quadrant left lower quadrant lower quadrant no rebound or guarding MUSCULOSKELETAl: Moves all extremities. No clubbing, cyanosis or edema. NEURO: Awake and alert. Following commands, speech normal, no focal deficits SKIN:: Warm, dry. Normal Color PSYCHIATRIC: Normal affect/mood Course Course Emergency Course: Discussed with Dr. Guzman for general surgery presentation work-up. Agrees with admission his service with NG tube Discussed with patient and family results of workup and diagnosis. Discussed need for admission. Patient and family understand and agree to current treatment plan Vital Signs Vital signs: Vital Signs T
[2020-04-15 00:27] LABS: Add Urine Microscopic? YES; Appearance Urine Clear (Clear); Bacteria Urine Trace /hpf; Bilirubin Urine Negative (Negative); Blood Urine Negative (Negative); Calcium Oxalate Crystals Urine Many /hpf; Color Urine Yellow (Yellow); Glucose Urine UA Negative (Negative); Ketones Urine Negative (Negative); Leukocyte Esterase Ur 2+ LEU/UL (Negative); Mucus Urine Rare /lpf; Nitrate Urine Negative (Negative); Protein Urine Negative (Negative); Specific Grav Ur 1.031 (1.001-1.035); Squamous Epithelial Cell Urine Moderate /hpf (Few); Urobilinogen Urine Negative mg/dL (<2.0); WBC Urine 31-50 /hpf
[2020-04-15 00:35] LABS: Alanine Aminotransferase 29 U/L (4-35); Albumin Level 4.2 g/dL (3.5-5.1); Alkaline Phosphatase 88 U/L (38-126); Anion Gap 6 mmol/L (8-16); Aspartate Amino Transferase 44 U/L (14-36); Bilirubin,Total 0.4 mg/dL (0.2-1.3); Blood Urea Nitrogen 24 mg/dL (7-17); Carbon Dioxide 29 mmol/L (22-30); Chloride 101 mmol/L (98-107); Estimated Glomerular Filt Rate > 60; Glucose 112 mg/dL (65-105); Potassium 3.7 mmol/L (3.4-5.0); Sodium 136 mmol/L (137-145)
[2020-04-15 00:49] LABS: Lipase 155 U/L (23-300)
[2020-04-15 02:41] VITALS: BP 122/83; PULSE 82; RESP 18; O2SAT 98
[2020-04-15 03:45] LABS: Lactic Acid Reflex 1.1 mmol/L (0.7-2.1)
[2020-04-15] MEDS: LIDOCAINE HCL 2% VISC SOLN 15 ML UDC (03:55)
[2020-04-15] MEDS: PANTOPRAZOLE SODIUM IV 40 MG VIAL IV PUSH (03:55)
[2020-04-15 04:14] VITALS: BP 159/100; PULSE 85; RESP 18; O2SAT 98
[2020-04-15 05:10] VITALS: BP 170/94; PULSE 83; RESP 16; TEMP 36.2; O2SAT 98; BMI 29.0
--- NOTE | 2020-04-15 05:10 | ADMGEN ---
This patient, Mary Mccrary, was admitted to [facility] Surg Room 303-01. Patient/family oriented to hospital policies and general routines including ID bracelet, bed and alarms, visiting hours, pain management, procedures, bathroom and other care routines, personal items, smoking policy, room service/diet, and visiting hours. Information on how to activate the Rapid Response Team has been discussed. Patient/Family are encouraged to report perceived risks to care and to ask questions if they do not understand what they are told or what they should do.
[2020-04-15 09:10] VITALS: PULSE 80; RESP 18; O2SAT 98
--- NOTE | 2020-04-15 09:20 | PM.IMHP ---
H&P: HPI History of Present Illness Date/Time: 04/15/20 09:20 Chief Complaint: SBO Narrative: Mary Mccrary is a 64 year old female presenting to ED c/o severe crampy abd pain associated c N/V. Pt reports she had been having issues c diarrhea prior to this episode and had taken some probiotics. Pt reports no bowel fxn since early in the week. Pt denies previous episodes. Workup in ED, including imaging significant for SBO. Pt admitted and NG decompression, bowel rest, IV hydration initiated. Pt feels much improved this am, and has began to pass flatus. Pt reports abd cramping, pain largely resolved. Review of Systems Constitutional: Constitutional: Reports anorexia, Denies chills, Reports fatigue, Denies fever(s), Denies headache(s), Denies increased appetite, Reports lethargy, Denies malaise, Reports poor appetite, Reports weakness, Denies weight gain and Denies weight loss Eyes: Eyes: Reports no additional eye complaints ENT: Reports system reviewed and no additional complaints, except as documented Cardiovascular: Cardiovascular: Reports no additional cardiovascular complaints Respiratory: Respiratory: Reports no additional respiratory complaints Gastrointestinal: Gastrointestinal: Reports as per HPI Genitourinary: Genitourinary: Reports no additional female genitourinary complaints Musculoskeletal: Musculoskeletal: Reports no additional musculoskeletal complaints Integumentary/Breasts: Skin/Breast: Reports system reviewed and no additional complaints, except as docu Neurologic: Reports system reviewed and no additional complaints, except as documented Psychiatric: Psychiatric: Reports no additional psychiatric complaints Endocrine: Endocrine: Reports no additional endocrine complaints Hematologic/Lymphatic: Hematologic/Lymphatic: Reports no additional hematologic/lymphatic complaints Allergic/Immunologic: Allergic/Immunologic: Reports no additional allergic/immunologic complaints [facility] Past Medical History Medical History Benign neoplasm of rectum BMI 33.0-33.9,adult Essential (primary) hypertension GERD (gastroesophageal reflux disease) Hiatal hernia Hyperlipidemia Non-cardiac chest pain Vitamin D deficiency, unspecified Surgical History Surgical History H/O unilateral oophorectomy History of History of repair of hiatal hernia 12/22/19: Paraesophageal hiatal hernia repair S/P cataract surgery S/P ectopic S/P partial hysterectomy Family History Family History Mother Hypertension Patient's mother is in good health Acute myocardial infarction Father Patient's father is in good health Malignant neoplasm of prostate Family history of Parkinson's disease Patient's father is Grandparent Malignant neoplasm of prostate Family history of emphysema Family history of dementia Social History Social History Smoking packs per day: 0 Smoking cigarettes per day: 0.0 Years smoked: 0 Smoking pack-years: 0.00 Smoking status: Never smoker Second hand tobacco smoke exposure: No Alcohol intake: never Drinks per week: 1 Substance use: never Substance use type: does not use Gender identity (if verbalized by the patient): Female Sexual Orientation (if Verbalized by the Patient): Straight or Heterosexual Spiritual care concerns: No Agree to blood products: Yes Meds Home Medications and Allergies Home Medications Medication Instructions Recorded Confirmed Type cholecalciferol (vitamin D3) 250 mcg PO DAILY 12/16/19 04/15/20 History [Vitamin D3] raloxifene 60 mg PO DAILY 12/22/19 04/15/20 History quinapril 10 See Rx Instructions .ROUTE 03/12/20 04/15/20 Rx mg-hydrochlorothiazide 12.5 mg .COMPLEX #90 tablet tablet
[2020-04-15] MEDS: SODIUM CHLORIDE 0.9% IV 1,000 ML 125 ML IV CONT (13:25)
[2020-04-15 14:00] VITALS: BP 140/85; PULSE 75; RESP 16; TEMP 36.6; O2SAT 98
--- NOTE | 2020-04-16 11:17 | PM.DS ---
DS: Admitting Diagnosis Admitting Diagnosis Admitting Diagnosis: small bowel obstruction DS: Discharge Diagnosis Discharge Diagnosis (1) SBO (small bowel obstruction): Code(s): K56.609 - Unspecified intestinal obstruction, unspecified as to partial versus complete obstruction Status: Acute Assessment and Plan: resolved c conservative mgmt, able to maria elena diet and having normal bowel fxn, cont soft diet at home, f/u 2 wks (2) Essential (primary) hypertension: Code(s): I10 - Essential (primary) hypertension Status: Acute Assessment and Plan: stable, cont current meds and mgmt per PCP (3) Hyperlipidemia: Code(s): E78.5 - Hyperlipidemia, unspecified Status: Acute Assessment and Plan: stable, cont current meds and mgmt per PCP DS: Summary Hospital Course Reason for hospitalization: small bowel obstruction Hospital Course: Pt is a 64 y/o F presenting c crampy abd pain, N/V. Workup in ED, including imaging, significant for SBO. Pt admitted to surgical team and started on conservative mgmt c NG decompression, bowel rest, IV hydration. Pt responded well to this treatment and on HD 1 was able to pass flatus. Pt also reported no further pain. Pt able to have NG clamped and subsequently removed. Pt was then able to maria elena diet. Pt had BM x 2 prior to discharge. Status at Discharge Functional status at discharge: independent ambulation Overall status at discharge: patient is back to baseline Time Spent with Patient Time attestation: Total time spent providing and/or coordinating discharge services: Time spent: Less than 30 minutes Exam Const: General: cooperative, healthy appearing, comfortable, no acute distress, well developed, alert, awake and Physically active Nutritional Appearance: average body habitus Orientation/consciousness: patient oriented x3 Limitations: no limitations Resp: Effort & Inspection: normal respiratory effort Auscultation: clear to auscultation bilaterally Cardio: Jugular venous distension: no JVD Rate: regular rate Rhythm: regular rhythm GI: Inspection: normal to inspection, Abdominal wall edema, non-distended and incision GI Palp: Yes Soft to palpation, No Tenderness to palpation present (GI), No Guarding due to palpation present (GI) and No Rigid due to palpation Discharge Plan Discharge Attending physician on discharge: Myesha Guzman Discharging Clinician: Myesha Guzman Patient Disposition: Home, Self-Care Activity: may shower, unlimited and as tolerated Diet: as tolerated Patient Instructions: Antibiotic Form, Bowel Obstruction (DC) Stand Alone Forms: General Discharge Information Follow-up/Referrals: Myesha Guzman MD [Physician] - Discharge Medications: Continued cholecalciferol (vitamin D3) [Vitamin D3] 125 mcg (5,000 unit) Tablet 250 mcg PO DAILY RF: 0 raloxifene 60 mg tablet 60 mg PO DAILY RF: 0 quinapril-hydrochlorothiazide 10-12.5 mg tablet See Rx Instructions .ROUTE .COMPLEX Qty: 90 RF: 3 Date of admission: 04/15/20 03:17 Primary Care Provider: Ilene Durbin Admitting Provider: Myesha Guzman Attending physician on admission: Myesha Guzman Condition: Stable
== END 2020-04-15 17:50 | disposition home or self-care (01) ==
LOC: ANHED 01:01 → ANH3MEDSUR 03:36
PROVIDERS: Admitting Provider Surgery; Emergency Provider Emergency Medicine; PCP Family Medicine; Visit Provider Surgery
DX: K56.609 Unspecified intestinal obstruction, unspecified as to partial versus complete obstruction (principal); K21.9 Gastro-esophageal reflux disease without esophagitis; I10 Essential (primary) hypertension; E78.5 Hyperlipidemia, unspecified
CPT/HCPCS: 36415; 74177; 80053; 81001; 83605; 83690; 85025; 87086; 87088; 96361; 96374; 99285; C9113; G0378; J7030; Q9967

== ENCOUNTER 2020-08-08 08:46 | Outpatient (CLI) | payer OTHER, SELFPAY ==
--- NOTE | ~2020-08-08 | CT_ITS ---
EXAMINATION: CT soft tissue neck w con DATE: 08/08/2020 09:21 INDICATION: Neck mass. TECHNIQUE: Computed tomography (CT) of the neck was performed with 75 mL Omnipaque-350 intravenous co ntrast. Automated exposure control and iterative reconstruction technique were employed. The dose-mark gth product was 517.71 mGy-cm. COMPARISON: None FINDINGS: There are likely changes of right ocular lens replacement surgery. There is plaque in proxi mal left internal carotid artery with 0% stenosis relative to normal distal artery lumen diameters. T here are no pathologically enlarged lymph nodes. There is a skin marker at right posterior neck. Ther e is severe cervical spondylosis. IMPRESSION: 1. No abnormal neck mass or lymphadenopathy. Reviewed, dictated and finalized at location [facility].
[2020-08-08 09:16] LABS: Estimated Glomerular Filt Rate > 60
== END 2020-08-08 08:47 | disposition home or self-care (01) ==
PROVIDERS: PCP Family Medicine; Visit Provider Family Medicine
DX: R22.1 Localized swelling, mass and lump, neck (principal)
CPT/HCPCS: 70491; Q9967

== ENCOUNTER 2020-09-03 08:00 | Outpatient (RCR) | payer OTHER, SELFPAY ==
--- NOTE | 2020-08-17 13:54 | PTOPEVAL ---
INITIAL PHYSICAL THERAPY EVALUATION and PLAN OF CARE Thank you for referring Mary Mccrary to [facility].? Mary is scheduled to be seen for physical therapy? 1-2x/week for 4 weeks. Please review, sign, date and return this plan of care PHILIP. I agree with and certify that the following plan of care is medically necessary. Referring Physician Date Admitting Provider: Attending Provider: Ilene Durbin DO Referring Provider: *PT Outpatient Evaluation Start: 08/17/20 12:41 Freq: Status: Active Protocol: Document 08/17/20 12:38 CHANNING (Rec: 08/17/20 13:53 CHANNING [id number]) Therapy Assessment Status Assessment Status Assessment Status Evaluation Outpatient Past Medical History Past Medical History Source of Past Medical History Recalled from Previous Visit, Confirmed with Patient/Family Neurological History Hx Neurological Disorders No Significant History Cardiovascular History Hx Hypercholesterolemia Yes Hx Hypertension Yes Hx Other Cardiac Disorders Yes: WALKS 3-4 MILES/WEEK Respiratory History Hx Respiratory Disorders No Significant History Gastrointestinal History Hx Esophageal Disorders Yes: PARAESOPHAGEAL HERNIA REPAIR 12/2019 Hx Gastroesophageal Reflux Disease Yes Hx Hernia Yes: PARAESOPHAGEAL HIATAL HERNIA WITH OBSTRUCTION Hx Polyps Yes: RECTAL POLYP REMOVED Hx Other Gastrointestinal Disorders Yes: HIATAL HERNIA; GALLBLADDER ATTACKS Genitourinary History Hx Kidney Stones Yes: PASSED ON OWN Musculoskeletal History Hx Musculoskeletal Disorders No Significant History Hematological History Hx Anemia Yes: ETIOLOGY UNKNOWN Hx Blood Transfusions Yes Endocrine History Hx Endocrine Disorders No Significant History HEENT History Hx Cataracts Yes: REMOVAL IN PAST; RETINAL SURGERY AND IMPLANT Hx Retinal Detachment Yes Hx Eye Surgery Yes: RT RETINA REPAIRED 2018 Integumentary History Hx Skin Disorders No Significant History Reproductive History Hx Section Yes Hx Hysterectomy Yes: W/ UNILATERAL OOPHORECTOMY Hx Mastectomy Yes: LT BREAST LUMPECTOMY-ABN CELLS-ON EVISTA Hx Post Menopausal Yes Hx Other Reproductive Disorders Yes: LT BREAST LUMPECTOMY- ABN CELLS-STARTED ON EVISTA ~2011 Psychosocial History Hx Other Psychiatric Disorders Yes: SEVERE CLAUSTROPHOBIA Pain History History of Any Previous or Ongoing No Significant History Instance of Pain Anesthesia History Hx Anes
--- NOTE | 2020-09-05 08:10 | PCPTNOTE ---
Patient called & cancelled scheduled appointment this date due to illness.
--- NOTE | 2020-10-08 09:41 | PCPTNOTE ---
PHYSICAL THERAPY DISCHARGE NOTE Admitting Provider: Attending Provider: Ilene Durbin DO Patient:Mary Mccrary Date of :1955 Mary has not returned for any further treatments since 09/03/2020. She was supposed to return to PT for 1 visit after her vacation, but that has not happened. Therefore she will be discharged at this time. Mary?s initial visit was on 08/17/2020 12:30 and she had a total of 5 visits. The goals have been met. I did phone her - thought she was back from vacation - but she was still on vacation. She did state that she was doing well but wanted recheck appointment - but has never called to schedule this. Thank you for referring Mary to [facility]. Please review, sign, date and return this discharge summary PHILIP. I have been updated about Mary's current status and I agree with discharge from the above service at this time. Referring Physician Date
== END 2020-10-08 14:44 | disposition home or self-care (01) ==
LOC: ANHHIPT 08:00
PROVIDERS: PCP Family Medicine; Visit Provider Family Medicine
DX: R22.1 Localized swelling, mass and lump, neck (principal); M62.838 Other muscle spasm
CPT/HCPCS: 97110; 97140; 97162

== ENCOUNTER 2020-10-06 08:42 | Outpatient (CLI) | payer OTHER, SELFPAY ==
[2020-10-06 09:18] LABS: Basophils Percent Auto 0.5 % (0.2-1.2); Eosinophils Absolute Auto 0.2 K/mm3 (0-0.3); Eosinophils Percent Auto 3.3 % (0-4.4); Hematocrit 43.2 % (37.0-47.0); Hemoglobin 14.3 g/dL (12.0-15.0); Immature Granulocyte Absolute 0.01 K/mm3 (0.00-0.031); Immature Granulocyte Percent A 0.2 % (0-0.5); Lymphocytes Absolute Auto 1.96 K/mm3 (0.9-3.2); Lymphocytes Percent Auto 34.4 % (18.3-44.2); Mean Corpuscular HGB Conc 33.1 g/dl (32-36); Mean Corpuscular Hemoglobin 31.7 pg (26-34); Mean Corpuscular Volume 95.8 fl (80-100); Mean Platelet Volume 9.7 fl (7.4-10.4); Monocytes Absolute Auto 0.5 K/mm3 (0.1-0.6); Monocytes Percent Auto 8.6 % (2.6-8.5); Platelet Count Result 262 k/mm3 (150-375); Red Blood Count 4.51 M/mm3 (4.2-5.4); Red Cell Distribution Width 13.8 % (11.5-14.5); White Blood Count 5.7 K/mm3 (4.5-10.0)
[2020-10-06 09:30] LABS: Alanine Aminotransferase 29 U/L (4-35); Albumin Level 4.2 g/dL (3.5-5.1); Alkaline Phosphatase 92 U/L (38-126); Anion Gap 7 mmol/L (8-16); Aspartate Amino Transferase 30 U/L (14-36); Bilirubin,Total 0.4 mg/dL (0.2-1.3); Blood Urea Nitrogen 17 mg/dL (7-17); Calcium 9.2 mg/dL (8.4-10.2); Carbon Dioxide 28 mmol/L (22-30); Chloride 103 mmol/L (98-107); Estimated Glomerular Filt Rate > 60; Glucose 97 mg/dL (65-110); Potassium 3.7 mmol/L (3.4-5.0); Sodium 138 mmol/L (137-145)
[2020-10-06 09:43] LABS: Hemoglobin A1C 5.7 % (<5.7)
== END 2020-10-06 08:43 | disposition home or self-care (01) ==
LOC: ANHLAB 08:44
PROVIDERS: PCP Family Medicine; Visit Provider Family Medicine
DX: R42 Dizziness and giddiness (principal); E16.2 Hypoglycemia, unspecified
CPT/HCPCS: 36415; 80053; 83036; 85025

== ENCOUNTER 2021-07-06 21:16 | Emergency (ER) | payer OTHER, SELFPAY ==
[2021-07-06 21:18] VITALS: BP 142/79; PULSE 95; RESP 16; TEMP 36.6; O2SAT 98
--- NOTE | 2021-07-06 21:47 | PC.NURSE ---
eye drops given by HANG morales
--- NOTE | 2021-07-06 22:35 | ED.EYEPROB ---
HPI - Eye Problem General Chief complaint: Eye Problems Stated complaint: floaters in left eye Time Seen by Provider: 07/06/21 21:28 Source: patient History of Present Illness HPI Narrative: Patient presents with blurry vision. For she was out at dinner reported floaters in her left eye starting proximal around 830 around 9:00 she noted severe blurry vision in her left eye she was concerned so she came to the ER for evaluation. She had floaters in his eye approximate 1 month ago was seen at [facility] with the plan of continued monitoring. She denies any pain to the area she denies any visual field loss she denies any trauma fevers or eye drainage. Related Data Home Medications Medication Instructions Recorded Confirmed cholecalciferol (vitamin D3) 250 mcg PO DAILY 12/16/19 07/31/20 [Vitamin D3] lactobacillus combination no.9 4 4,000 mmu cells PO DAILY 04/25/20 07/31/20 billion cell capsule Allergies Allergy/AdvReac Type Severity Reaction Status Date / Time No Known Allergies Allergy Verified 07/31/20 12:02 Review of Systems Review of Systems: CONSTITUTIONAL: Denies fever, chills, or sweats. EYES: Denies visual changes, redness, or discharge. ENT: Denies rhinorrhea, congestion, sore throat, or otalgia. CARDIOVASCULAR: Denies chest pain, palpitations, or edema. RESPIRATORY: Denies cough or dyspnea. GASTROINTESTINAL: Denies abdominal pain, nausea, vomiting, or diarrhea. GENITOURINARY: Denies dysuria or hematuria. SKIN: Denies rash or itching. MUSCULOSKELETAL: Denies back pain, joint pain, or myalgia. NEUROLOGIC: Denies headache, numbness, dizziness, or weakness. PSYCHIATRIC: Denies anxiety or depression. All systems reviewed & are unremarkable except as noted in HPI and below PMFSH Past Medical History Medical History Benign neoplasm of rectum BMI 33.0-33.9,adult Essential (primary) hypertension GERD (gastroesophageal reflux disease) Hiatal hernia Hyperlipidemia Non-cardiac chest pain Vitamin D deficiency, unspecified Surgical History Surgical History H/O unilateral oophorectomy History of History of repair of hiatal hernia 12/22/19: Paraesophageal hiatal hernia repair S/P cataract surgery S/P ectopic S/P partial hysterectomy Family History Family History Mother Hypertension Patient's mother is in good health Acute myocardial infarction Father Patient's father is in good health Malignant neoplasm of prostate Family history of Parkinson's disease Patient's father is Grandparent Malignant neoplasm of prostate Family history of emphysema Family history of dementia Social History Social History Smoking packs per day: 0 Smoking cigarettes per day: 0.0 Years smoked: 0 Smoking pack-years: 0.00 Smoking status: Never smoker Second hand tobacco smoke exposure: No Alcohol intake: never Drinks per week: 1 Substance use: never Substance use type: does not use Gender identity (if verbalized by the patient): Female Sexual Orientation (if Verbalized by the Patient): Straight or Heterosexual Spiritual care concerns: No Agree to blood products: Yes Exam Narrative: GENERAL: Well-appearing, well-nourished, and in no acute distress. HEAD: Normocephalic, atraumatic. EYES: PERRLA and EOMI. IOP's 7 and 8 bilaterally.(Unable to performed exam today as equipment is nonfunctional.) EXTREMITIES: Normal range of motion. No edema. SKIN: Warm, dry, no rash. NEURO: No focal deficits. Alert and oriented x3. PSYCH: Normal mood and affect. Course Consultations Consultation #1: Pending return phone call from [facility] ophthalmology. Attempted to contact [facility] however they declined consultation on their patient as the
[2021-07-06 23:43] VITALS: BP 130/90; PULSE 87; RESP 16; O2SAT 95
== END 2021-07-06 23:45 | disposition short-term general hospital (02) ==
PROVIDERS: Emergency Provider Emergency Medicine; PCP Family Medicine
DX: H53.132 Sudden visual loss, left eye (principal); I10 Essential (primary) hypertension; K21.9 Gastro-esophageal reflux disease without esophagitis; E78.5 Hyperlipidemia, unspecified; E55.9 Vitamin D deficiency, unspecified; Z98.49 Cataract extraction status, unspecified eye
CPT/HCPCS: 99283

== ENCOUNTER 2021-11-01 08:05 | Outpatient (CLI) | payer OTHER, SELFPAY ==
[2021-11-01 08:26] LABS: Hematocrit 42.5 % (37.0-47.0); Hemoglobin 14.2 g/dL (12.0-15.0); Mean Corpuscular HGB Conc 33.4 g/dl (32-36); Mean Corpuscular Hemoglobin 31.6 pg (26-34); Mean Corpuscular Volume 94.4 fl (80-100); Mean Platelet Volume 9.8 fl (7.4-10.4); Platelet Count Result 234 k/mm3 (150-375); Red Cell Distribution Width 13.2 % (11.5-14.5); White Blood Count 6.6 K/mm3 (4.5-10.0)
[2021-11-01 08:38] LABS: Alanine Aminotransferase 24 U/L (6-35); Albumin Level 4.3 g/dL (3.5-5.1); Alkaline Phosphatase 73 U/L (38-126); Anion Gap 8 mmol/L (8-16); Aspartate Amino Transferase 33 U/L (14-36); Bilirubin,Total 0.4 mg/dL (0.2-1.3); Blood Urea Nitrogen 18 mg/dL (7-17); Carbon Dioxide 30 mmol/L (22-30); Chloride 101 mmol/L (98-107); Cholesterol 245 mg/dL (0-200); Estimated Glomerular Filt Rate > 60; Glucose 99 mg/dL (65-110); HDL Direct 54 mg/dL; Potassium 3.6 mmol/L (3.4-5.0); Sodium 139 mmol/L (137-145); Triglycerides 137 mg/dL (<150)
[2021-11-01 08:49] LABS: LDL Cholesterol Direct 132 mg/dL
== END 2021-11-01 08:06 | disposition home or self-care (01) ==
LOC: ANHLAB 08:07
PROVIDERS: PCP Family Medicine; Visit Provider Family Medicine
DX: Z13.0 Encounter for screening for diseases of the blood and blood-forming organs and certain disorders involving the immune mechanism (principal); Z13.1 Encounter for screening for diabetes mellitus; E78.5 Hyperlipidemia, unspecified
CPT/HCPCS: 36415; 80053; 80061; 84443; 85027

== ENCOUNTER 2021-11-04 01:30 | Day surgery (SDC) | payer OTHER, SELFPAY ==
[2021-10-31 14:07] VITALS: BMI 31.1
[2021-11-04 09:41] VITALS: BP 152/82; PULSE 78; RESP 16; TEMP 36.1; O2SAT 100; BMI 30.6
[2021-11-04] MEDS: LACTATED RINGERS 1,000 ML 150 ML IV CONT (09:52)
--- NOTE | 2021-11-04 10:00 | PM.IMHP ---
H&P: HPI History of Present Illness Date/Time: 11/04/21 10:00 Chief Complaint: History of colon polyps Narrative: this is a 66-year-old white female patient presents for screening colonoscopy. Patient has a history of adenomatous colon polyps in the past. She required surgical resection by Dr. Benavides at 1 point. Patient's most recent colonoscopy 2018. Patient presents today for follow-up surveillance colonoscopy. Patient's current weight appetite bowel movements are normal. Past medical history is significant for paraesophageal hiatal hernia that was repaired by Dr. Blackmon in 2019. Patient currently doing well presents for surveillance colonoscopy. Review of Systems Review of Systems: Review of systems noncontributory. [facility] Past Medical History Medical History Benign neoplasm of rectum BMI 33.0-33.9,adult Essential (primary) hypertension GERD (gastroesophageal reflux disease) Hiatal hernia Hyperlipidemia Non-cardiac chest pain Vitamin D deficiency, unspecified Surgical History Surgical History H/O unilateral oophorectomy History of History of repair of hiatal hernia 12/22/19: Paraesophageal hiatal hernia repair S/P cataract surgery S/P ectopic S/P partial hysterectomy Family History Family History Mother Hypertension Patient's mother is in good health Acute myocardial infarction Father Patient's father is in good health Malignant neoplasm of prostate Family history of Parkinson's disease Patient's father is Grandparent Malignant neoplasm of prostate Family history of emphysema Family history of dementia Social History Social History Smoking packs per day: 0 Smoking cigarettes per day: 0.0 Years smoked: 0 Smoking pack-years: 0.00 Smoking status: Never smoker Second hand tobacco smoke exposure: No Alcohol intake: never Drinks per week: 1 Substance use: never Substance use type: does not use Living arrangements: with family Gender identity (if verbalized by the patient): Female Sexual Orientation (if Verbalized by the Patient): Straight or Heterosexual Spiritual care concerns: No Agree to blood products: Yes Meds Home Medications and Allergies Home Medications Medication Instructions Recorded Confirmed Type cholecalciferol (vitamin D3) 125 250 mcg PO DAILY 12/16/19 11/04/21 History mcg (5,000 unit) tablet (Vitamin D3) quinapril 10 See Rx Instructions .Route 02/07/21 11/04/21 Rx mg-hydrochlorothiazide 12.5 mg .COMPLEX #90 tabs tablet raloxifene 60 mg tablet See Rx Instructions .Route 02/07/21 11/04/21 Rx .COMPLEX #90 tabs Allergies Allergy/AdvReac Type Severity Reaction Status Date / Time No Known Allergies Allergy Verified 11/04/21 09:40 Vital Signs Vital Signs - 24 hr 11/04/21 09:41 Temperature 96.9 F L Pulse Rate 78 Respiratory Rate 16 Blood Pressure 152/82 H Pulse Oximetry 100 Oxygen Delivery Room Air Exam Narrative: Physical exam reveals patient to be alert. Vital signs stable. HEENT exam is unremarkable. Patient is anicteric. Lungs are clear to auscultation and percussion. Heart is without murmur or extra sounds. Abdominal exam bowel sounds are present soft nontender with no organomegaly. Digital external rectal exam is normal. Assessment and Plan Assessment and plan (1) History of colon polyps: Code(s): Z86.010 - Personal history of colonic polyps Status: Acute Assessment and Plan: Patient has a prior history of colon polyps. She presents today for surveillance screening exam. Most recent exam prior to this was 2019. Further recommendations will be given after endoscopy.
--- NOTE | 2021-11-04 10:31 | WPDANESEPPF ---
Anes - Initial Pre Proc Eval Procedure: Operation Date: 11/04/21 10:30 Proposed Procedures p Screening Colonoscopy - Nikolai Dawn MD Date/Time: 11/04/21 10:31 Surgeon: Nikolai Dawn MD Pre Op Diagnosis: hx of colon polyps Patient Data Age: 66 Gender: F Height: 1.47 m Weight: 66.5 kg Last Vital Signs Temp 96.9 F L 11/04/21 09:41 Pulse 78 11/04/21 09:41 Resp 16 11/04/21 09:41 BP 152/82 H 11/04/21 09:41 Pulse Ox 100 11/04/21 09:41 O2 Del Method Room Air 11/04/21 09:41 Allergies Allergy/AdvReac Type Severity Reaction Status Date / Time No Known Allergies Allergy Verified 11/04/21 09:40 Home Medications Medication Instructions Recorded Confirmed Type cholecalciferol (vitamin D3) 125 250 mcg PO DAILY 12/16/19 11/04/21 History mcg (5,000 unit) tablet (Vitamin D3) quinapril 10 See Rx Instructions .Route 02/07/21 11/04/21 Rx mg-hydrochlorothiazide 12.5 mg .COMPLEX #90 tabs tablet raloxifene 60 mg tablet See Rx Instructions .Route 02/07/21 11/04/21 Rx .COMPLEX #90 tabs Patient hx anesthesia problems: none Family hx anesthesia problems: none Results Review: All pre-operative results and documents have been reviewed as part of the pre-operative evaluation. [facility] Past Medical History Medical History Benign neoplasm of rectum BMI 33.0-33.9,adult Essential (primary) hypertension GERD (gastroesophageal reflux disease) Hiatal hernia Hyperlipidemia Non-cardiac chest pain Vitamin D deficiency, unspecified Surgical History Surgical History H/O unilateral oophorectomy History of History of repair of hiatal hernia 12/22/19: Paraesophageal hiatal hernia repair S/P cataract surgery S/P ectopic S/P partial hysterectomy Family History Family History Mother Hypertension Patient's mother is in good health Acute myocardial infarction Father Patient's father is in good health Malignant neoplasm of prostate Family history of Parkinson's disease Patient's father is Grandparent Malignant neoplasm of prostate Family history of emphysema Family history of dementia Social History Social History Smoking packs per day: 0 Smoking cigarettes per day: 0.0 Years smoked: 0 Smoking pack-years: 0.00 Smoking status: Never smoker Second hand tobacco smoke exposure: No Alcohol intake: never Drinks per week: 1 Substance use: never Substance use type: does not use Living arrangements: with family Gender identity (if verbalized by the patient): Female Sexual Orientation (if Verbalized by the Patient): Straight or Heterosexual Spiritual care concerns: No Agree to blood products: Yes Anes - Eval Final PreProcedure Day of Procedure 11/04/21 10:31 Patient weight: normal Heart: regular rate and rhythm Lungs: clear to auscultation Airway: Mallampati scale class II Neurological: alert and oriented Last oral intake: >/= 8 hours ASA classification: III Emergent: no Anesthetic plan: proceed Anesthesia type and monitoring: general GIVS and standard monitoring Results Review: All pre-operative results and documents have been reviewed as part of the pre-operative evaluation. Informed Consent: The patient's anesthetic plan and its attendant risks and benefits were discussed with the patient/family/POA. Questions were solicited and answers provided to the satisfaction of the patient/family/POA.
[2021-11-04 10:56] VITALS: BP 146/87; PULSE 66; RESP 17; O2SAT 96
[2021-11-04 11:06] VITALS: BP 137/88; PULSE 70; RESP 16; O2SAT 98
[2021-11-04 11:16] VITALS: BP 148/89; PULSE 62; RESP 13; O2SAT 100
== END 2021-11-04 11:26 | disposition home or self-care (01) ==
PROVIDERS: PCP Family Medicine; Visit Provider Internal Medicine Gastroenterology
PROC: 0DJD8ZZ Inspection of Lower Intestinal Tract, Via Natural or Artificial Opening Endoscopic (ICD-10-PCS; CPT 45378; principal; 2021-11-04 10:30)
DX: Z12.11 Encounter for screening for malignant neoplasm of colon (principal); K62.1 Rectal polyp; K57.30 Diverticulosis of large intestine without perforation or abscess without bleeding; K64.8 Other hemorrhoids; K21.9 Gastro-esophageal reflux disease without esophagitis; E55.9 Vitamin D deficiency, unspecified; K44.9 Diaphragmatic hernia without obstruction or gangrene; E78.5 Hyperlipidemia, unspecified; I10 Essential (primary) hypertension
CPT/HCPCS: 45385; 88305; J2704; J7120

== ENCOUNTER 2022-06-13 07:13 | Outpatient (CLI) | payer MEDICARE, SELFPAY ==
--- NOTE | ~2022-06-13 | MM_ITS ---
EXAMINATION: MM screening shira BI w yaneth HISTORY: Screening mammogram TECHNIQUE: Craniocaudal and mediolateral oblique 3-D tomosynthesis images were obtained and synthetic 2-D images were generated. CAD analysis was submitted and interpreted. COMPARISON: 12/16/2017, 01/04/2016 bilateral screening mammogram examinations BREAST PARENCHYMAL COMPOSITION: There are scattered areas of fibroglandular density. FINDINGS: Status post left lobectomy, reportedly benign. There is no evidence of suspicious mass, alma cification, or architectural distortion to suggest malignancy in either breast. There has been no christina picious interval change. IMPRESSION: 1. No mammographic evidence of malignancy. 2. Recommend routine screening mammography in one year. BI-RADS Category 1: Negative Reviewed, dictated and finalized at location A.
--- NOTE | ~2022-06-13 | DEXA_ITS ---
Bone Density Report Name: BOUBACAR TAYLOR Age: 67 Sex: Female Ethnicity: White Date of : 1955 Indication: postmenopausal; screening for osteoporosis; height loss; Referring Provider: ANGELA SAHA Study: Bone densitometry was performed. Exam Date: June 13, 2022 Accession number: [id number] Bone Density: Region BMD T-score Z-score Classification AP Spine(L1-L4) 0.841 -1.9 0.0 Osteopenia Femoral Neck (Left) 0.794 -0.5 1.1 Normal Total Hip (Left) 0.840 -0.8 0.4 Normal Femoral Neck (Right) 0.783 -0.6 1.0 Normal Total Hip (Right) 0.840 -0.8 0.4 Normal Total Hip Mean 0.840 -0.8 0.4 Normal World Health Organization criteria for BMD impression classify patients as: Normal (T-score at or above -1.0), Osteopenia (T-score between -1.0 and -2.5), or Osteoporosis (T-score at or below -2.5). 10-year Fracture Risk(1): Major Osteoporotic Fracture 7.1% Hip Fracture 0.4% Reported Risk Factors: [place] (), Neck BMD=0.783, BMI=33.7 (1) FRAX(R) Version 3.08. Fracture probability calculated for an untreated patient. Fracture probability may be lower if the patient has received treatment. Clinical Information Provided by Patient: Has used the following medications: Evista (i.e. raloxifene), Vitamin D Patient maximum height was 60 Menopause Age: 56 Drinks caffeinated beverages Onset of menses at age 15 Number of children 1 Impression: The patient has low bone mass, based on the Total Spine T-score. The patient has an estimated ten-year risk of hip fracture of 0.4% and an estimated ten-year risk of major fracture of 7.1%, based on the WHO FRAX algorithm. Discussion: BONE DENSITY IS LOW AT ONE OR MORE SKELETAL SITES. This patient's lowest T-score is low at one or more skeletal sites. It meets the World Health Organization's (WHO) criteria for ?low bone mass? (T-score between -1.0 and -2.5). The patient's 10-year risk of fracture as calculated by FRAX is less than the threshold where pharmacological therapy is recommended by the National Osteoporosis Foundation (NOF). However, all treatment decisions require clinical judgment and consideration of individual patient factors, including patient preferences, comorbidities, previous drug use, risk factors not captured in the FRAX model (e.g., frailty, falls, vitamin D deficiency, increased bone turnover, interval significant decline in bone density) and possible under or overestimation of fracture risk by FRAX. The patient should follow a healthful lifestyle (good nutrition with adequate calcium and vitamin D, and appropriate weight-bearing exercise). Follow-Up: Consider repeating this study in 2 to 3 years to reassess this patient's status, or sooner if there is some new clinical indication. Reported by: MARIA EUGENIA on 06/13/2022
== END 2022-06-13 07:14 | disposition home or self-care (01) ==
LOC: ANHIMG 07:14
PROVIDERS: PCP Family Medicine; Visit Provider Family Medicine
DX: Z12.31 Encounter for screening mammogram for malignant neoplasm of breast (principal); Z78.0 Asymptomatic menopausal state; M85.88 Other specified disorders of bone density and structure, other site
CPT/HCPCS: 77063; 77067; 77080

== ENCOUNTER 2024-08-24 01:58 | Day surgery (SDC) | payer MEDICARE, SELFPAY ==
[2024-08-03 11:41] VITALS: BMI 31.8
--- OUTSIDE RECORDS SUMMARY | 2024-08-24 02:01 | XMS_ITS | Clinical Summary ---
Author Organization [facility] Address [address] [place] [address] Care Team Providers Care Purchasing And Claims Supervisor Name Role Phone Unavailable Primary Care Provider Unavailabl e Immunizations Immunization Administration Dates Next Due MODERNA COVID-19 (12+) MRNA, LNP-S, PF, 100 MCG/ 0.5 ML DOSE 03/13/2020,02/14/2020 Social History Tobacco Use Types Packs/Day Years Used Date Smoking Tobacco: Never Assessed Comments Unknown Sex and Gender Information Value Date Recorded Sex Assigned at Not on file Legal Sex Female 7:22 PM CDT Gender Identity Not on file Sexual Orientation Not on file Last Filed Vital Signs Vital Sign Reading Time Taken Comments Blood Pressure 112/78 05/15/2012 2:52 PM CDT Pulse 80 05/15/2012 2:52 PM CDT Temperature - - Respiratory Rate - - Oxygen Saturation - - Inhaled Oxygen Concentration - - Weight 64.4 kg (142 lb) 05/15/2012 2:52 PM CDT Height - - Body Mass Index - - Plan of Treatment Health Maintenance Due Date Last Done Comments Colorectal Cancer Screening Colonoscopy (10 Years) 1956 Hepatitis C 1974 Mammogram Screening 1996 DTaP, Tdap and Td Vaccines ( 1 - Tdap) 03/20/1999 03/19/1999 Pneumococcal Vaccine: 50+ Years (1 of 1 - PCV) 2006 Zoster Vaccines (3 of 3) 02/02/2020 020, 06/05/2017, 10/10/2016 Dexa Scan (General) 2021 COVID-19 Vaccine (3 - 2023-2 5 season) 2023 03/13/2020, 02/14/2020 RSV Immunization or 60+ Years (1 - 1-dose 75+ series) 05/22/2031 Meningococcal B Vaccine Aged Out No l onger eligible based on patient's age to complete this topic Meningococcal Vaccine Aged Out No alexus fiona eligible based on patient's age to complete this topic RSV Immunizations Under 20 Months Aged Out No longer eligible b ased on patient's age to complete this topic
--- OUTSIDE RECORDS SUMMARY | 2024-08-24 02:01 | XMS_ITS | Encounter Summary ---
Author Organization [facility] Address [address] [place] [address] Care Team Providers Care Camp Recreation Specialist Name Role Phone Unavailable Primary Care Provider Unavailabl e Encounter Details Date Type Department Care Team (Late st Contact Info) Description 08/10/1998 Outpatient Historical [facility] EstevezAric MD [address] [place] [address] Diarrhea (Primary Dx) Social History Tobacco Use Types Packs/Day Years Used Date Smoking Tobacco: Never Assessed Comments Unknown Sex and Gender Information Value Date Recorded Sex Assigned at Not on file Legal Sex Female 3:55 AM PHYSICAL THERAPY ASST Gender Identity Not on file Sexual Orientation Not on file documented as of this encounter Plan of Treatment Not on file documented as of this encounter Visit Diagnoses Diagnosis Diarrhea- Primary documented in this encounter
--- OUTSIDE RECORDS SUMMARY | 2024-08-24 02:01 | XMS_ITS | Encounter Summary ---
Author Organization [facility] Address [address] [place] [address] Care Team Providers Care Director Of Group Sales Name Role Phone Unavailable Primary Care Provider Unavailabl e Encounter Details Date Type Department Care Team (Late st Contact Info) Description 09/14/2000 Outpatient Historical [facility] Internal Medicine - [place] [address] [place] [phone] [place] [address] [facility] [place] [phone] Social History Tobacco Use Types Packs/Day Years Used Date Smoking Tobacco: Never Assessed Comments Unknown Sex and Gender Information Value Date Recorded Sex Assigned at Not on file Legal Sex Female 3:55 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
--- OUTSIDE RECORDS SUMMARY | 2024-08-24 02:01 | XMS_ITS | Encounter Summary ---
Author Organization [facility] Address [address] [place] [address] Care Team Providers Care Heat Treat Furnace Operator Name Role Phone Unavailable Primary Care Provider Unavailabl e Encounter Details Date Type Department Care Team (Late st Contact Info) Description 01/15/2001 Outpatient Historical [facility] Internal Medicine - [place] [address] [place] [address] [place] [address] [place] [phone] Social History Tobacco Use Types Packs/Day Years Used Date Smoking Tobacco: Never Assessed Comments Unknown Sex and Gender Information Value Date Recorded Sex Assigned at Not on file Legal Sex Female 3:55 AM SHRIMP TRAWLER CAPTAIN Gender Identity Not on file Sexual Orientation Not on file documented as of this encounter Plan of Treatment Not on file documented as of this encounter Visit Diagnoses Not on filedocumented in this encounter
--- OUTSIDE RECORDS SUMMARY | 2024-08-24 02:01 | XMS_ITS | Encounter Summary ---
Author Organization [facility] Address [address] [place] [address] Care Team Providers Care Electrical Assembly Supervisor Name Role Phone Unavailable Primary Care Provider Unavailabl e Encounter Details Date Type Department Care Team (Late st Contact Info) Description 03/05/1998 Outpatient Historical [facility] Internal Medicine - [place] [address] [place] [phone] [place] [address] [facility] [place] [phone] Social History Tobacco Use Types Packs/Day Years Used Date Smoking Tobacco: Never Assessed Comments Unknown Sex and Gender Information Value Date Recorded Sex Assigned at Not on file Legal Sex Female 3:55 AM MARRIAGE THERAPIST Gender Identity Not on file Sexual Orientation Not on file documented as of this encounter Plan of Treatment Not on file documented as of this encounter Visit Diagnoses Not on filedocumented in this encounter
--- OUTSIDE RECORDS SUMMARY | 2024-08-24 02:01 | XMS_ITS | Clinical Summary ---
Author Organization [facility] Address [address] [place] [address] Care Team Providers Care Apple Press Operator Name Role Phone Gifty Ilene Primary Care Provider [phone] Source Comments [facility],non-owned Affiliates and Associated Physician Practices is amultiple site organization consisting of ambulatory clinics and hospital sitesin [place], [place], [place] and [place]. This disclosure is being madepursuant to the Care Everywhere program and may not contain all information available regarding this patient. Last updated 17.[facility] Allergies No known active allergies Medications * Be aware that medications may not be up to date on this document. Alwaysverify current medications with the patient. 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 Essential hypertension, benign 04/23/2002 Immunizations Immunization Administration Dates Next Due INFLUENZA VACCINE 11/27/2021 Social History Tobacco Use Types Packs/Day Years Used Date Smoking Tobacco: Never Smokeless Tobacco: Never Alcohol Use Standard Drinks/Week Comments Not Currently 0 (1 standard drink = 0.6 oz pur e alcohol) Comments Unknown Sex and Gender Information Value Date Recorded Sex Assigned at Not on file Legal Sex Female 6:08 AM TELEMARKETING REPRESENTATIVE Gender Identity Not on file Sexual Orientation Not on file Last Filed Vital Signs Vital Sign Reading Time Taken Comments Blood Pressure 148/94 07/07/2021 12:28 AM CDT Pulse 80 07/07/2021 12:28 AM CDT Temperature 36.4 C (97.6 F) 07/07/2021 12:28 AM CDT Respiratory Rate 14 07/07/2021 1:09 AM CDT Oxygen Saturation 97% 07/07/2021 1:09 AM CDT Inhaled Oxygen Concentration - - Weight 66.7 kg (147 lb) 07/07/2021 12:28 AM CDT Height 147.3 cm (4' 10) 07/07/2021 12:28 AM CDT Body Mass Index 30.72 07/07/2021 12:28 AM CDT Plan of Treatment Health Maintenance Due Date Last Done Comments BONE DENSITY TESTING 1955 COLOGUARD (AGES 45-75) - COLON CA SCREENING 1955 COLON MONITORING 1955 COLONOSCOPY - COLON CA SCREENING 1956 CT COLONOGRAPHY - COLON CA SCREENING 1955 Colorectal Cancer Screening 1955 FIT - COLON CA SCREENING 1955 FLEX SIG - COLON CA SCREENING 1955 LIPID TESTING 1955 MAMMOGRAM 1955 MEDICARE AWV 12 MONTHS 1955 HEPATITIS C SCREENING 05/17/1974 DTAP/TDAP/TD VACCINES (1 - Tdap) 05/22/1975 PNEUMOCOCCAL VACCINE 50+ (1 of 1 - PCV) 2006 ZOSTER VACCINE (1 of 2) 2006 SCREENING FOR DIABETES 07/08/2021 COVID-19 VACCINE ( - season) 2023 12/10/2020, 03/13/2020, 02/14/2020 DEPRESSION SCREENING 02/17/2024 INFLUENZA VACCINE (Season Ended) 2024 11/27/2021, 12/07/2019, 12/16/2018, Additional history exists Respiratory Syncytial Virus (RSV) Vaccine Pt: or over 60 yrs (1 - 1-dose 75+ series) 05/22/2031 HEPATITIS B VACCINE Aged Out No longe r eligible based on patient's age to complete this topic HIB VACCINE Aged Out No longer eligi ble based on patient's age to complete this topic HPV VACCINE Aged Out No longer eligi ble based on patient's age to complete this topic MENINGOCOCCAL (Group B) VACCINE SHARED DECISION-MAKING Aged Out No longer eligible based on patient's age to complete this topic MENINGOCOCCAL GROUPS A/C/Y/W VACCINE Aged Out No longer eligible based on patient's age to complete this topic Insurance [facility] MEDICARE [facility] Care Teams Apple Press Operator Relationship Specialty Start Date End Date Ilene Durbin DO [address] [place] [phone] PCP - General Family Medicine 07/07/21
--- OUTSIDE RECORDS SUMMARY | 2024-08-24 02:01 | XMS_ITS | Encounter Summary ---
Author Organization [facility] Address [address] [place] [address] Care Team Providers Care Septic Tank Servicer Name Role Phone Unavailable Primary Care Provider Unavailabl e Encounter Details Date Type Department Care Team (Late st Contact Info) Description 05/29/2000 Outpatient Historical [facility] Internal Medicine - [place] [address] [place] [phone] [place] [address] [facility] [place] [phone] Social History Tobacco Use Types Packs/Day Years Used Date Smoking Tobacco: Never Assessed Comments Unknown Sex and Gender Information Value Date Recorded Sex Assigned at Not on file Legal Sex Female 3:55 AM SUPERVISOR SHUTTLE VENEERING Gender Identity Not on file Sexual Orientation Not on file documented as of this encounter Plan of Treatment Not on file documented as of this encounter Visit Diagnoses Not on filedocumented in this encounter
--- OUTSIDE RECORDS SUMMARY | 2024-08-24 02:01 | XMS_ITS | Encounter Summary ---
Author Organization [facility] Address [address] [place] [address] Care Team Providers Care Career Representative Name Role Phone Unavailable Primary Care Provider Unavailabl e Encounter Details Date Type Department Care Team (Late st Contact Info) Description 07/23/1998 Outpatient Historical [facility] Internal Medicine - [place] [address] [place] [phone] [place] [address] [facility] [place] [phone] Social History Tobacco Use Types Packs/Day Years Used Date Smoking Tobacco: Never Assessed Comments Unknown Sex and Gender Information Value Date Recorded Sex Assigned at Not on file Legal Sex Female 3:55 AM NIGHT ORDER SELECTOR Gender Identity Not on file Sexual Orientation Not on file documented as of this encounter Plan of Treatment Not on file documented as of this encounter Visit Diagnoses Not on filedocumented in this encounter
--- OUTSIDE RECORDS SUMMARY | 2024-08-24 02:01 | XMS_ITS | Encounter Summary ---
Author Organization [facility] Address [address] [place] [address] Care Team Providers Care Nuclear Power Plant Engineer Name Role Phone Unavailable Primary Care Provider Unavailabl e Encounter Details Date Type Department Care Team (Late st Contact Info) Description 01/17/[address] [facility] Internal Medicine - [place] [address] [place] [phone] [place] [address] [place] [phone] Social History Tobacco Use Types Packs/Day Years Used Date Smoking Tobacco: Never Assessed Comments Unknown Sex and Gender Information Value Date Recorded Sex Assigned at Not on file Legal Sex Female 3:55 AM CARTON FOLDER Gender Identity Not on file Sexual Orientation Not on file documented as of this encounter Plan of Treatment Not on file documented as of this encounter Visit Diagnoses Not on filedocumented in this encounter
--- OUTSIDE RECORDS SUMMARY | 2024-08-24 02:01 | XMS_ITS | Encounter Summary ---
Author Organization [facility] Address [address] [place] [address] Care Team Providers Care Contract Mail Carrier Name Role Phone Unavailable Primary Care Provider Unavailabl e Encounter Details Date Type Department Care Team (Late st Contact Info) Description 05/18/2001 Outpatient Historical [facility] Internal Medicine - [place] [address] [place] [phone] [place] [address] [facility] [place] [phone] Social History Tobacco Use Types Packs/Day Years Used Date Smoking Tobacco: Never Assessed Comments Unknown Sex and Gender Information Value Date Recorded Sex Assigned at Not on file Legal Sex Female 3:55 AM COMBATANT DIVER QUALIFIED Gender Identity Not on file Sexual Orientation Not on file documented as of this encounter Plan of Treatment Not on file documented as of this encounter Visit Diagnoses Not on filedocumented in this encounter
--- OUTSIDE RECORDS SUMMARY | 2024-08-24 02:01 | XMS_ITS | Clinical Summary ---
Author Organization [facility] Address [address] [place], [address] [address] Phone Care Team Providers Care Grain Scooper Name Role Phone Nikolai Mott DO Unavailable [phone] Allergies No known active allergies Medications raloxifene (EVISTA) 60 MG TabletIndication s:Osteoporosis Take 1 Tab by mouth daily. 30 Tab 0 03/01/2015 Active quinapril (ACCUPRIL) 10 MG Tablet Take 10 mg by mouth every evening. Active raloxifene (EVISTA) 60 MG Tablet Take 1 Tab by mouth daily. 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 Hypertension 04/06/2015 Immunizations Immunization Administration Dates Next Due Influenza Vaccine less than 3 yrs 12/17/2014 Family History Medical History Relation Name Comments Cancer Father prostate- cause of Parkinsonism Father Heart Attack Mother Hypertension Mother Relation Name Status Comments Father Mother Social History Tobacco Use Types Packs/Day Years Used Date Smoking Tobacco: Never Smokeless Tobacco: Never Alcohol Use Standard Drinks/Week Comments Yes 0 (1 standard drink = 0.6 oz pur e alcohol) occasionally Comments No Sex and Gender Information Value Date Recorded Sex Assigned at Not on file Legal Sex Female 11:58 PM CDT Gender Identity Not on file Sexual Orientation Not on file Last Filed Vital Signs Vital Sign Reading Time Taken Comments Blood Pressure 144/96 04/05/2015 1:20 PM DIRECTOR OF CASINO Pulse 93 04/05/2015 1:20 PM DIRECTOR OF CASINO Temperature 36.4 C (97.6 F) 04/05/2015 1:20 PM DIRECTOR OF CASINO Respiratory Rate 20 04/05/2015 1:20 PM DIRECTOR OF CASINO Oxygen Saturation 94% 04/05/2015 1:20 PM DIRECTOR OF CASINO Inhaled Oxygen Concentration - - Weight 72.1 kg (159 lb) 04/05/2015 1:20 PM DIRECTOR OF CASINO Height 147.3 cm (4' 10) 04/05/2015 1:20 PM DIRECTOR OF CASINO Body Mass Index 33.23 04/05/2015 1:20 PM DIRECTOR OF CASINO Plan of Treatment Health Maintenance Due Date Last Done Comments Hepatitis C Virus (HCV) Screening 1955 TdaP Immunization 1955 Cologuard 2001 Immunochemical Fecal Occult Blood 2001 Pneumococcal Immunization (5 0+ years) (1 of 1 - PCV) 2006 Zoster Immunization (1 of 2) 2006 Mammogram 04/22/2016 04/23/2015 SARS-COV-2 Immunization (1 - season) 2023 Influenza Immunization (#1) 2024 12/17/2014 Colonoscopy 12/28/2024 12/28/2014 Colorectal Cancer Screening 12/28/2024 Respiratory Syncytial Virus (RSV) Immunization (Adult) (1 - 1-dose 75+ series) 05/22/2031 Hepatitis B Immunization Aged Out No longer eligible based on patient's age to complete this topic Human Papillomavirus (HPV) Immunization Aged Out No longer eligible b ased on patient's age to complete this topic Meningococcal Immunization (ACWY) Aged Out No longer eligible based on patient's age to complete this topic Rotavirus Immunization Aged Out No lo nger eligible based on patient's age to complete this topic Procedures Procedure Name Priority Date/Time Associated Diagnosis Comments COLONOSCOPY Routine 12/28/2014 from Last 3 Months or Most Recently Relevant to Health Maintenance Results * HM COLONOSCOPY (12/28/2014) Nikolai Mott DO PROCEDURE/MINOR SURGICAL ORDERA BLES Final Result from Last 3 Months or Most Recently Relevant to Health Maintenance Insurance [facility] Care Teams Grain Scooper Relationship Specialty Start Date End Date Nikolai Mott DO Gastroenterology 01/17/15
--- OUTSIDE RECORDS SUMMARY | 2024-08-24 02:01 | XMS_ITS | Encounter Summary ---
Author Organization [facility] Address [address] [place] [address] Care Team Providers Care Mass Communications Instructor Name Role Phone Unavailable Primary Care Provider Unavailabl e Encounter Details Date Type Department Care Team (Late st Contact Info) Description 02/17/2002 Outpatient Historical [facility] Internal Medicine - [place] [address] [place] [phone] [place] [address] [facility] [place] [phone] Social History Tobacco Use Types Packs/Day Years Used Date Smoking Tobacco: Never Assessed Comments Unknown Sex and Gender Information Value Date Recorded Sex Assigned at Not on file Legal Sex Female 3:55 AM VENEER JOINER Gender Identity Not on file Sexual Orientation Not on file documented as of this encounter Plan of Treatment Not on file documented as of this encounter Visit Diagnoses Not on filedocumented in this encounter
--- OUTSIDE RECORDS SUMMARY | 2024-08-24 02:01 | XMS_ITS | Encounter Summary ---
Author Organization [facility] Address [address] [place] [address] Care Team Providers Care Electrical Equipment Tester Name Role Phone Unavailable Primary Care Provider Unavailabl e Encounter Details Date Type Department Care Team (Late st Contact Info) Description 12/24/1998 Outpatient Historical [facility] Internal Medicine - [place] [address] [place] [phone] [place] [address] [facility] [place] [phone] Social History Tobacco Use Types Packs/Day Years Used Date Smoking Tobacco: Never Assessed Comments Unknown Sex and Gender Information Value Date Recorded Sex Assigned at Not on file Legal Sex Female 3:55 AM ELECTRONIC EQUIPMENT REPAIRMEN Gender Identity Not on file Sexual Orientation Not on file documented as of this encounter Plan of Treatment Not on file documented as of this encounter Visit Diagnoses Not on filedocumented in this encounter
--- OUTSIDE RECORDS SUMMARY | 2024-08-24 02:01 | XMS_ITS | Encounter Summary ---
Author Organization [facility] Address [address] [place] [address] Care Team Providers Care Ecosystem Ecology Professor Name Role Phone Unavailable Primary Care Provider Unavailabl e Encounter Details Date Type Department Care Team (Late st Contact Info) Description 03/19/1998 Outpatient Historical [facility] Internal Medicine - [place] [address] [place] [address] Selina Fall MD [address] [address] Social History Tobacco Use Types Packs/Day Years Used Date Smoking Tobacco: Never Assessed Comments Unknown Sex and Gender Information Value Date Recorded Sex Assigned at Not on file Legal Sex Female 3:55 AM WATCH ASSEMBLY INSPECTOR Gender Identity Not on file Sexual Orientation Not on file documented as of this encounter Plan of Treatment Not on file documented as of this encounter Visit Diagnoses Not on filedocumented in this encounter
--- OUTSIDE RECORDS SUMMARY | 2024-08-24 02:01 | XMS_ITS | Encounter Summary ---
Author Organization [facility] Address [address] [place] [address] Care Team Providers Care Lottery Office Manager Name Role Phone Unavailable Primary Care Provider Unavailabl e Encounter Details Date Type Department Care Team (Late st Contact Info) Description 04/10/1999 Outpatient Historical [facility] Internal Medicine - [place] [address] [place] [phone] [place] [address] [facility] [place] [phone] Social History Tobacco Use Types Packs/Day Years Used Date Smoking Tobacco: Never Assessed Comments Unknown Sex and Gender Information Value Date Recorded Sex Assigned at Not on file Legal Sex Female 3:55 AM GAS METER INSTALLER HELPER Gender Identity Not on file Sexual Orientation Not on file documented as of this encounter Plan of Treatment Not on file documented as of this encounter Visit Diagnoses Not on filedocumented in this encounter
--- OUTSIDE RECORDS SUMMARY | 2024-08-24 02:01 | XMS_ITS | Clinical Summary ---
Author Organization [facility] Address [address] [facility] Attn: Epic Prelude ADT [place] [address] Care Team Providers Care Reject Opener Name Role Phone Unavailable Primary Care Provider Unavailabl e Allergies Active Allergy Reactions Criticality Noted Date Comments No Known Allergies 04/23/2002 Active Problems Problem Noted Date Diagnosed Date Essential hypertension, benign 04/23/2002 Immunizations Immunization Administration Dates Next Due (TDVAX)(7 YRS UP) TETANUS AN D DIPHTHERIA TOXOIDS, ADSORBED (2 LF OF TETANUS TOXOID AND 2 LF OF DIPHTHERIA TOXOID), 0.5ML (PF), IM 03/19/1999 Influenza Vaccine Split 3+ Yrs IM 12/17/2001 Social History Tobacco Use Types Packs/Day Years Used Date Smoking Tobacco: Never Assessed Comments Unknown Sex and Gender Information Value Date Recorded Sex Assigned at Not on file Legal Sex Female 3:55 AM ELECTRIC RANGE PREPARER Gender Identity Not on file Sexual Orientation Not on file Plan of Treatment Health Maintenance Due Date Last Done Comments BREAST CANCER SCREENING 1996 DTAP/TDAP/TD VACCINES (1 - Tdap) 03/20/1999 03/19/19 00 COLORECTAL SCREENING 2001 Colorectal Cancer Screening 2001 FIT-DNA Q 3 years 2001 FIT/FOBT Q 1 year 2001 Flex Sig/CT Colonography Q 5 years 2001 PNEUMOCOCCAL VACCINE 50+ YEARS (1 of 1 - PCV) 05/22/19 07 ZOSTER VACCINE (1 of 2) 2006 OSTEOPOROSIS SCREENING 2021 INFLUENZA VACCINE (#1) 2024 12/17/2001 RSV VACCINE (60+ or ) (1 - 1-dose 75+ series) 05/22/2031
--- OUTSIDE RECORDS SUMMARY | 2024-08-24 02:01 | XMS_ITS | Encounter Summary ---
Author Organization [facility] Address [address] [facility] [place] [address] Care Team Providers Care Family Educator Name Role Phone Ilene Durbin DO Primary Care Provider Encounter Details Date Type Department Care Team (Late st Contact Info) Description 07/07/2021 Ophth Exam [facility] [address] [place] [address] Champ Islas IV, DO [address] [place] [address] Social History Tobacco Use Types Packs/Day Years Used Date Smoking Tobacco: Never Assessed Comments Unknown Sex and Gender Information Value Date Recorded Sex Assigned at Not on file Legal Sex Female 6:08 AM PHARMACY ACCOUNT DIRECTOR Gender Identity Not on file Sexual Orientation Not on file documented as of this encounter Plan of Treatment Not on file documented as of this encounter Visit Diagnoses Not on filedocumented in this encounter Care Teams Family Educator Relationship Specialty Start Date End Date Ilene Durbin DO [facility] [place] [address] PCP - General Family Medicine 07/07/21 documented as of this encounter
--- OUTSIDE RECORDS SUMMARY | 2024-08-24 02:01 | XMS_ITS | Encounter Summary ---
Author Organization [facility] Address [address] [place] [address] Care Team Providers Care Visual Educator Name Role Phone Unavailable Primary Care Provider Unavailabl e Encounter Details Date Type Department Care Team (Late st Contact Info) Description 07/13/1998 Outpatient Historical [facility] Internal Medicine - [place] [address] [place] [phone] [place] [address] [facility] [place] [phone] Social History Tobacco Use Types Packs/Day Years Used Date Smoking Tobacco: Never Assessed Comments Unknown Sex and Gender Information Value Date Recorded Sex Assigned at Not on file Legal Sex Female 3:55 AM OVERLAY PLASTICIAN Gender Identity Not on file Sexual Orientation Not on file documented as of this encounter Plan of Treatment Not on file documented as of this encounter Visit Diagnoses Not on filedocumented in this encounter
[2024-08-24 08:16] VITALS: BP 151/89; PULSE 67; RESP 19; TEMP 36.7; O2SAT 97
[2024-08-24] MEDS: LACTATED RINGERS 1,000 ML 150 ML IV CONT (08:19)
--- NOTE | 2024-08-24 08:36 | P.PNAN_ITS ---
Anes - Initial Pre Proc Eval Procedure: Operation Date: 08/24/24 09:15 Proposed Procedures p Esophagogastroduodenoscopy - Adan Calderon MD Date/Time: 08/24/24 08:36 Surgeon: Adan Calderon MD Pre Op Diagnosis: Dysphagia, unspecified, Patient Data Age: 69 Gender: F Height: 1.47 m Weight: 70.8 kg Last Vital Signs Temp 98.0 F 08/24/24 08:16 Pulse 67 08/24/24 08:16 Resp 19 08/24/24 08:16 BP 151/89 H 08/24/24 08:16 Pulse Ox 97 08/24/24 08:16 O2 Del Method Room Air 08/24/24 08:16 Allergies Allergy/AdvReac Type Severity Reaction Status Date / Time No Known Allergies Allergy Verified 08/03/24 11:47 Home Medications ?Medication ?Instructions ?Recorded ?Confirmed ?Type cholecalciferol (vitamin D3) 125 250 mcg PO DAILY 12/16/19 08/24/24 History mcg (5,000 unit) tablet (Vitamin D3) lisinopril 10 See Rx Instructions .Route 05/19/24 08/24/24 Rx mg-hydrochlorothiazide 12.5 mg .COMPLEX #90 tabs tablet rosuvastatin 5 mg tablet See Rx Instructions .Route 05/19/24 08/24/24 Rx .COMPLEX #90 tabs raloxifene 60 mg tablet See Rx Instructions .Route 08/15/24 08/24/24 Rx .COMPLEX #90 tabs Patient hx anesthesia problems: none Family hx anesthesia problems: none Results Review: All pre-operative results and documents have been reviewed as part of the pre- operative evaluation. [facility] Past Medical History Medical History Atypical nevi Insomnia BMI 33.0-33.9,adult GERD (gastroesophageal reflux disease) Non-cardiac chest pain Hyperlipidemia Benign neoplasm of rectum Essential (primary) hypertension Hiatal hernia Vitamin D deficiency, unspecified Surgical History Surgical History History of repair of hiatal hernia 12/22/19: Paraesophageal hiatal hernia repair S/P cataract surgery H/O unilateral oophorectomy S/P partial hysterectomy S/P ectopic History of Family History Family History Mother Hypertension Patient's mother is in good health Acute myocardial infarction Father Patient's father is in good health Malignant neoplasm of prostate Family history of Parkinson's disease Patient's father is Grandparent Malignant neoplasm of prostate Family history of emphysema Family history of dementia Social History Social History Social History: 03/16/24 very confident with medical forms Smoking packs per day: 0 Smoking cigarettes per day: 0.0 Years smoked: 0 Smoking pack-years: 0.00 Smoking status: Never smoker Second hand tobacco smoke exposure: No Alcohol intake: current Drinks per week: 1 Substance use: never Substance use type: does not use Do You Feel Safe in your Home?: Yes Lack of Transportation: No Lack of Food: Never True Current Housing: I Have Housing Concerned About Future Housing: No Difficulty Paying Gas/Electric Bills: No Difficulty Paying for Meds: No Currently Unemployed: No Education: Bachelor's Degree Difficulty w/ Childcare or Family Care: No Living arrangements: with family Occupation/Education: occupation Gender identity (if verbalized by the patient): Female Sexual Orientation (if Verbalized by the Patient): Straight or Heterosexual Spiritual care concerns: No Agree to blood products: Yes Anes - Eval Final PreProcedure Day of Procedure 08/24/24 08:36 Patient weight: obese Lungs: normal air movement Airway: Mallampati scale class II Neurological: alert and oriented Last oral intake: >/= 8 hours ASA classification: II Emergent: no Anesthetic plan: proceed Anesthesia type and monitoring: general GIVS and standard monitoring Results Review: All pre-operative results and documents have been reviewed as part of the pre- operative evaluation. HTN, hyperlipidemia, hx of esophageal hernia. Informed Consent: The patient's anesthetic plan and its attendant risks and benefits were discussed with the patient/family/POA. Questions were solicited and answers provided to the satisfaction of the patient/family/POA.
--- NOTE | 2024-08-24 08:48 | PM.HPGS ---
History of Present Illness History of Present Illness Consent: Risks, benefits, and alternatives have been discussed and questions answered. Patient agrees to proceed with procedure. Chief complaint: Dysphagia, unspecified, Narrative: Mary Mccrary is a 69 year old female here for egd, intermittent regurgitation of food and choking sensation, had egd few years ago. Review of Systems Review of Systems: All systems reviewed & are unremarkable except as noted in HPI and below PMFSH Past Medical History Medical History (Updated 08/24/24 @ 08:49 by Adan Calderon MD) Regurgitation of food Atypical nevi Insomnia BMI 33.0-33.9,adult GERD (gastroesophageal reflux disease) Non-cardiac chest pain Hyperlipidemia Benign neoplasm of rectum Essential (primary) hypertension Hiatal hernia Vitamin D deficiency, unspecified Surgical History Surgical History History of repair of hiatal hernia 12/22/19: Paraesophageal hiatal hernia repair S/P cataract surgery H/O unilateral oophorectomy S/P partial hysterectomy S/P ectopic History of Family History Family History Mother Hypertension Patient's mother is in good health Acute myocardial infarction Father Patient's father is in good health Malignant neoplasm of prostate Family history of Parkinson's disease Patient's father is Grandparent Malignant neoplasm of prostate Family history of emphysema Family history of dementia Social History Social History Social History: 03/16/24 very confident with medical forms Smoking packs per day: 0 Smoking cigarettes per day: 0.0 Years smoked: 0 Smoking pack-years: 0.00 Smoking status: Never smoker Second hand tobacco smoke exposure: No Alcohol intake: current Drinks per week: 1 Substance use: never Substance use type: does not use Do You Feel Safe in your Home?: Yes Lack of Transportation: No Lack of Food: Never True Current Housing: I Have Housing Concerned About Future Housing: No Difficulty Paying Gas/Electric Bills: No Difficulty Paying for Meds: No Currently Unemployed: No Education: Bachelor's Degree Difficulty w/ Childcare or Family Care: No Living arrangements: with family Occupation/Education: occupation Gender identity (if verbalized by the patient): Female Sexual Orientation (if Verbalized by the Patient): Straight or Heterosexual Spiritual care concerns: No Agree to blood products: Yes Meds Home Medications and Allergies Home Medications ?Medication ?Instructions ?Recorded ?Confirmed ?Type cholecalciferol (vitamin D3) 125 250 mcg PO DAILY 12/16/19 08/24/24 History mcg (5,000 unit) tablet (Vitamin D3) lisinopril 10 See Rx Instructions .Route 05/19/24 08/24/24 Rx mg-hydrochlorothiazide 12.5 mg .COMPLEX #90 tabs tablet rosuvastatin 5 mg tablet See Rx Instructions .Route 05/19/24 08/24/24 Rx .COMPLEX #90 tabs raloxifene 60 mg tablet See Rx Instructions .Route 08/15/24 08/24/24 Rx .COMPLEX #90 tabs Allergies Allergy/AdvReac Type Severity Reaction Status Date / Time No Known Allergies Allergy Verified 08/03/24 11:47 Vital Signs Vital Signs - 24 hr 08/24/24 08:16 Temperature 98.0 F Pulse Rate 67 Respiratory Rate 19 Blood Pressure 151/89 H Pulse Oximetry 97 Oxygen Delivery Room Air Exam Const: General: comfortable and no acute distress HENMT: Face/Nose/Sinus: Normal nares present Eyes: General: appearance normal, both eyes and all related structures Neck: Neck: no JVD Resp: Auscultation: clear to auscultation bilaterally Cardio: Rate: regular rate Rhythm: regular rhythm GI: Inspection: non-distended GI Palp: Yes Soft to palpation Skin: General skin exam: normal color Neuro: Speech: normal speech Extrem: General: normal to inspection Psych: Mental Status: mental status grossly normal Assessment and Plan Assessment and plan (1) Regurgitation of food: Code(s): R11.10 - Vomiting, unspecified Status: Acute Assessment and Plan: egd
[2024-08-24 08:53] VITALS: BP 108/62; PULSE 66; RESP 20; O2SAT 97
[2024-08-24 09:03] VITALS: BP 125/80; PULSE 64; RESP 15; O2SAT 98
[2024-08-24 09:13] VITALS: BP 137/86; PULSE 62; RESP 19; O2SAT 98
== END 2024-08-24 09:22 | disposition home or self-care (01) ==
PROVIDERS: PCP Physician Assistant Medical; Referring Provider Nurse Practitioner Family; Visit Provider Internal Medicine Gastroenterology
PROC: 0DJ08ZZ Inspection of Upper Intestinal Tract, Via Natural or Artificial Opening Endoscopic (ICD-10-PCS; CPT 43235; principal; 2024-08-24 09:15)
DX: K31.84 Gastroparesis (principal); E78.5 Hyperlipidemia, unspecified; I10 Essential (primary) hypertension; E55.9 Vitamin D deficiency, unspecified; G47.00 Insomnia, unspecified; K21.9 Gastro-esophageal reflux disease without esophagitis; E66.9 Obesity, unspecified; Z68.32 Body mass index [BMI] 32.0-32.9, adult; Z79.810 Long term (current) use of selective estrogen receptor modulators (SERMs); Z98.890 Other specified postprocedural states; Z87.19 Personal history of other diseases of the digestive system; Z80.42 Family history of malignant neoplasm of prostate; Z82.49 Family history of ischemic heart disease and other diseases of the circulatory system
CPT/HCPCS: 43235; J2704; J7120

== ENCOUNTER 2024-09-09 07:58 | Outpatient (CLI) | payer MEDICARE, SELFPAY ==
--- NOTE | ~2024-09-09 | NM_ITS ---
EXAM: NM gastric emptying study DATE: 09/09/2024 12:34 INDICATION: Unspecified vomiting TECHNIQUE: A gastric emptying study was performed using the methodology of Ej MUNGUIA, et al. J Nucl Med 2007; 48:568-572. The patient was given a meal consisting of 2 scrambled eggs labeled with 0.962 mCi Tc-99m sulfur colloid, 2 slices of toast, two packages of jam, and approximately 120 mL of water . Simultaneous anterior and posterior 1-min images of the abdomen were obtained with the patient supi ne at multiple time points over a total period of 4 hours. The geometric mean of anterior and posteri or views was determined, and the percentage retention was calculated for each time point. COMPARISON: None. FINDINGS: Gastric retention of the radiotracer-labeled meal was 88%, 53%, and 14% at the 1-hour, 2-hour, and 4- hour time points, respectively. With this technique, apparent rapid gastric emptying is suggested by <30% gastric retention at 1 hour. Delayed gastric emptying is defined by gastric retention of >90% at 1 hour, >60% retention at 2 hours, or >10% retention at 4 hours. IMPRESSION: 1. Delayed gastric emptying. Reviewed, dictated and finalized at location A.
--- OUTSIDE RECORDS SUMMARY | 2024-09-09 08:01 | XMS_ITS | Encounter Summary ---
Author Organization [facility] Address [address] [place] [address] Care Team Providers Care Diesel Bus Mechanic Name Role Phone Unavailable Primary Care Provider Unavailabl e Encounter Details Date Type Department Care Team (Late st Contact Info) Description 04/10/[address] [facility] Internal Medicine - [place] [address] [place] [phone] [place] [address] [facility] [place] [address] Social History Tobacco Use Types Packs/Day Years Used Date Smoking Tobacco: Never Assessed Comments Unknown Sex and Gender Information Value Date Recorded Sex Assigned at Not on file Legal Sex Female 3:55 AM PIPE MAKER Gender Identity Not on file Sexual Orientation Not on file documented as of this encounter Plan of Treatment Not on file documented as of this encounter Visit Diagnoses Not on filedocumented in this encounter
--- OUTSIDE RECORDS SUMMARY | 2024-09-09 08:01 | XMS_ITS | Clinical Summary ---
Author Organization [facility] Address [address] [facility] Attn: Epic Prelude ADT [place] [address] Care Team Providers Care Cook Manager Name Role Phone Unavailable Primary Care [...] on file Legal Sex Female 3:55 AM HOTEL DESK CLERK Gender Identity Not on file Sexual Orientation [...]
--- OUTSIDE RECORDS SUMMARY | 2024-09-09 08:01 | XMS_ITS | Encounter Summary ---
Author Organization [facility] Address [address] [place] [address] Care Team Providers Care Joinery Machinist Name Role Phone Unavailable Primary Care Provider Unavailabl e Encounter Details Date Type Department Care Team (Late st Contact Info) Description 05/29/2000 Outpatient Historical [facility] Internal Medicine - [place] [address] [place] [phone] [place] [address] [facility] [place] [address] Social History Tobacco Use Types Packs/Day Years Used Date Smoking Tobacco: Never Assessed Comments Unknown Sex and Gender Information Value Date Recorded Sex Assigned at Not on file Legal Sex Female 3:55 AM HISTORIC INTERPRETER Gender Identity Not on file Sexual Orientation Not on file documented as of this encounter Plan of Treatment Not on file documented as of this encounter Visit Diagnoses Not on filedocumented in this encounter
--- OUTSIDE RECORDS SUMMARY | 2024-09-09 08:01 | XMS_ITS | Encounter Summary ---
Author Organization [facility] Address [address] [place] [address] Care Team Providers Care Charter Pilot Name Role Phone Unavailable Primary Care Provider Unavailabl e Encounter Details Date Type Department Care Team (Late st Contact Info) Description 03/05/1998 Outpatient Historical [facility] Internal Medicine - [place] [address] [place] [phone] [place] [address] [facility] [place] [address] Social History Tobacco Use Types Packs/Day Years Used Date Smoking Tobacco: Never Assessed Comments Unknown Sex and Gender Information Value Date Recorded Sex Assigned at Not on file Legal Sex Female 3:55 AM TERRAZZO SUPERVISOR Gender Identity Not on file Sexual Orientation Not on file documented as of this encounter Plan of Treatment Not on file documented as of this encounter Visit Diagnoses Not on filedocumented in this encounter
--- OUTSIDE RECORDS SUMMARY | 2024-09-09 08:01 | XMS_ITS | Encounter Summary ---
Author Organization [facility] Address [address] [place] [address] Care Team Providers Care Optometrist President/Practice Owner Name Role Phone Unavailable Primary Care Provider Unavailabl e Encounter Details Date Type Department Care Team (Late st Contact Info) Description 02/17/2002 Outpatient Historical [facility] Internal [facility] - [place] [address] [place] [phone] [place] [address] [facility] [place] [address] Social History Tobacco Use Types Packs/Day Years Used Date Smoking Tobacco: Never Assessed Comments Unknown Sex and Gender Information Value Date Recorded Sex Assigned at Not on file Legal Sex Female 3:55 AM COUNSELING AIDE Gender Identity Not on file Sexual Orientation Not on file documented as of this encounter Plan of Treatment Not on file documented as of this encounter Visit Diagnoses Not on filedocumented in this encounter
--- OUTSIDE RECORDS SUMMARY | 2024-09-09 08:01 | XMS_ITS | Encounter Summary ---
Author Organization [facility] Address [address] [place] [address] Care Team Providers Care Food Service Assistant Name Role Phone Unavailable Primary Care Provider Unavailabl e Encounter Details Date Type Department Care Team (Late st Contact Info) Description 09/14/2000 Outpatient Historical [facility] Internal Medicine - [place] [address] [place] [phone] [place] [address] [facility] [place] [phone] Social History Tobacco Use Types Packs/Day Years Used Date Smoking Tobacco: Never Assessed Comments Unknown Sex and Gender Information Value Date Recorded Sex Assigned at Not on file Legal Sex Female 3:55 AM MEN'S DESIGNER Gender Identity Not on file Sexual Orientation Not on file documented as of this encounter Plan of Treatment Not on file documented as of this encounter Visit Diagnoses Not on filedocumented in this encounter
--- OUTSIDE RECORDS SUMMARY | 2024-09-09 08:01 | XMS_ITS | Encounter Summary ---
Author Organization [facility] Address [address] [facility] [place] [address] Care Team Providers Care Supervisor Electronics Processing Name Role Phone Ilene Durbin DO Primary Care Provider [phone] Encounter Details Date Type Department Care Team (Late st Contact Info) Description 07/07/2021 Ophth Exam [facility] [address] [place] [address] Champ Islas IV, DO [address] [place] [address] Social History Tobacco Use Types Packs/Day Years Used Date Smoking Tobacco: Never Assessed Comments Unknown Sex and Gender Information Value Date Recorded Sex Assigned at Not on file Legal Sex Female 6:08 AM YARDMASTER Gender Identity Not on file Sexual Orientation Not on file documented as of this encounter Plan of Treatment Not on file documented as of this encounter Visit Diagnoses Not on filedocumented in this encounter Care Teams Supervisor Electronics Processing Relationship Specialty Start Date End Date Ilene Durbin DO [facility] [place] [address] PCP - General Family Medicine 07/07/21 documented as of this encounter
--- OUTSIDE RECORDS SUMMARY | 2024-09-09 08:01 | XMS_ITS | Encounter Summary ---
Author Organization [facility] Address [address] [place] [address] Care Team Providers Care Process Worker Name Role Phone Unavailable Primary Care Provider Unavailabl e Encounter Details Date Type Department Care Team (Late st Contact Info) Description 12/24/1998 Outpatient Historical [facility] Internal Medicine - [place] [address] [place] [address] [place] [address] [facility] [place] [address] Social History Tobacco Use Types Packs/Day Years Used Date Smoking Tobacco: Never Assessed Comments Unknown Sex and Gender Information Value Date Recorded Sex Assigned at Not on file Legal Sex Female 3:55 AM HARNESS INSPECTOR Gender Identity Not on file Sexual Orientation Not on file documented as of this encounter Plan of Treatment Not on file documented as of this encounter Visit Diagnoses Not on filedocumented in this encounter
--- OUTSIDE RECORDS SUMMARY | 2024-09-09 08:01 | XMS_ITS | Encounter Summary ---
Author Organization [facility] Address [address] [place] [address] Care Team Providers Care Certified Detention Deputy Name Role Phone Unavailable Primary Care Provider Unavailabl e Encounter Details Date Type Department Care Team (Late st Contact Info) Description 03/19/1998 Outpatient Historical [facility] Internal Medicine - [place] [address] [place] [address] Selina Fall MD [address] [address] Social History Tobacco Use Types Packs/Day Years Used Date Smoking Tobacco: Never Assessed Comments Unknown Sex and Gender Information Value Date Recorded Sex Assigned at Not on file Legal Sex Female 3:55 AM BAND MACHINE OPERATOR Gender Identity Not on file Sexual Orientation Not on file documented as of this encounter Plan of Treatment Not on file documented as of this encounter Visit Diagnoses Not on filedocumented in this encounter
--- OUTSIDE RECORDS SUMMARY | 2024-09-09 08:01 | XMS_ITS | Encounter Summary ---
Author Organization [facility] Address [address] [place] [address] Care Team Providers Care Health Facilities Surveyor Name Role Phone Unavailable Primary Care Provider Unavailabl e Encounter Details Date Type Department Care Team (Late st Contact Info) Description 01/17/[address] [facility] Internal Medicine - [place] [address] [place] [address] [place] [address] [facility] [place] [address] Social History Tobacco Use Types Packs/Day Years Used Date Smoking Tobacco: Never Assessed Comments Unknown Sex and Gender Information Value Date Recorded Sex Assigned at Not on file Legal Sex Female 3:55 AM SOIL SCIENCE TECHNICAL OFFICER Gender Identity Not on file Sexual Orientation Not on file documented as of this encounter Plan of Treatment Not on file documented as of this encounter Visit Diagnoses Not on filedocumented in this encounter
--- OUTSIDE RECORDS SUMMARY | 2024-09-09 08:01 | XMS_ITS | Encounter Summary ---
Author Organization [facility] Address [address] [place] [address] Care Team Providers Care Florist Supplies Salesperson Name Role Phone Unavailable Primary Care Provider Unavailabl e Encounter Details Date Type Department Care Team (Late st Contact Info) Description 01/15/2001 Outpatient Historical [facility] Internal Medicine - [place] [address] [place] [address] [place] [address] [place] [phone] Social History Tobacco Use Types Packs/Day Years Used Date Smoking Tobacco: Never Assessed Comments Unknown Sex and Gender Information Value Date Recorded Sex Assigned at Not on file Legal Sex Female 3:55 AM AUTO RADIATOR MECHANIC Gender Identity Not on file Sexual Orientation Not on file documented as of this encounter Plan of Treatment Not on file documented as of this encounter Visit Diagnoses Not on filedocumented in this encounter
--- OUTSIDE RECORDS SUMMARY | 2024-09-09 08:01 | XMS_ITS | Encounter Summary ---
Author Organization [facility] Address [address] [place] [address] Care Team Providers Care Biomedical Specialist Name Role Phone Unavailable Primary Care Provider Unavailabl e Encounter Details Date Type Department Care Team (Late st Contact Info) Description 07/13/1998 Outpatient Historical [facility] Internal Medicine - [place] [address] [place] [address] [place] [address] [facility] [place] [address] Social History Tobacco Use Types Packs/Day Years Used Date Smoking Tobacco: Never Assessed Comments Unknown Sex and Gender Information Value Date Recorded Sex Assigned at Not on file Legal Sex Female 3:55 AM TALENT DEVELOPMENT MANAGER Gender Identity Not on file Sexual Orientation Not on file documented as of this encounter Plan of Treatment Not on file documented as of this encounter Visit Diagnoses Not on filedocumented in this encounter
--- OUTSIDE RECORDS SUMMARY | 2024-09-09 08:01 | XMS_ITS | Encounter Summary ---
Author Organization [facility] Address [address] [place] [address] Care Team Providers Care Mortgage Closer Name Role Phone Unavailable Primary Care Provider Unavailabl e Encounter Details Date Type Department Care Team (Late st Contact Info) Description 08/10/1998 Outpatient Historical [facility] EstevezAric MD [address] [address] [address] [place] [address] Diarrhea (Primary Dx) Social History Tobacco Use Types Packs/Day Years Used Date Smoking Tobacco: Never Assessed Comments Unknown Sex and Gender Information Value Date Recorded Sex Assigned at Not on file Legal Sex Female 3:55 AM GAS ENGINE OPERATOR GENERATORS Gender Identity Not on file Sexual Orientation Not on file documented as of this encounter Plan of Treatment Not on file documented as of this encounter Visit Diagnoses Diagnosis Diarrhea- Primary documented in this encounter
--- OUTSIDE RECORDS SUMMARY | 2024-09-09 08:01 | XMS_ITS | Encounter Summary ---
Author Organization [facility] Address [address] [place] [address] Care Team Providers Care Ocean Biologist Name Role Phone Unavailable Primary Care Provider Unavailabl e Encounter Details Date Type Department Care Team (Late st Contact Info) Description 07/23/1998 Outpatient Historical [facility] Internal Medicine - [place] [address] [place] [address] [place] [address] [facility] [place] [address] Social History Tobacco Use Types Packs/Day Years Used Date Smoking Tobacco: Never Assessed Comments Unknown Sex and Gender Information Value Date Recorded Sex Assigned at Not on file Legal Sex Female 3:55 AM PHYSICIAN ALLERGIST IMMUNOLOGIST Gender Identity Not on file Sexual Orientation Not on file documented as of this encounter Plan of Treatment Not on file documented as of this encounter Visit Diagnoses Not on filedocumented in this encounter
--- OUTSIDE RECORDS SUMMARY | 2024-09-09 08:01 | XMS_ITS | Encounter Summary ---
Author Organization [facility] Address [address] [place] [address] Care Team Providers Care Gluing Machine Adjuster Name Role Phone Unavailable Primary Care Provider Unavailabl e Encounter Details Date Type Department Care Team (Late st Contact Info) Description 05/18/2001 Outpatient Historical [facility] Internal Medicine - [place] [address] [place] [address] [place] [address] [facility] [place] [address] Social History Tobacco Use Types Packs/Day Years Used Date Smoking Tobacco: Never Assessed Comments Unknown Sex and Gender Information Value Date Recorded Sex Assigned at Not on file Legal Sex Female 3:55 AM INTAKE COUNSELOR Gender Identity Not on file Sexual Orientation Not on file documented as of this encounter Plan of Treatment Not on file documented as of this encounter Visit Diagnoses Not on filedocumented in this encounter
--- OUTSIDE RECORDS SUMMARY | 2024-09-09 08:01 | XMS_ITS | Clinical Summary ---
Author Organization [facility] Address [address] [facility] [place] [address] Care Team Providers Care Faculty Research Assistant Name Role Phone Gifty Ilene Primary Care Provider [phone] [facility],non-owned Affiliates and Associated Physician Practices is amultiple site organization consisting of ambulatory clinics and hospital sitesin [place], [place]. This disclosure is being madepursuant to the Care Everywhere program and may not contain all information available regarding this patient. Last updated 17.[facility] Allergies No known active allergies Medications * [...] on file Legal Sex Female 6:08 AM FIRE PROTECTION FABRICATOR Gender Identity Not on file Sexual Orientation [...] 03/13/2020, 02/14/2020 DEPRESSION SCREENING 02/17/2024 INFLUENZA VACCINE (#1) 2024 , 12/07/2019, 12/16/2018, Additional history exists Respiratory Syncytial [...] patient's age to complete this topic Insurance [facility] MEDICARE [facility] Care Teams Faculty Research Assistant Relationship Specialty Start Date End Date Ilene Durbin DO [address] [place] [phone] PCP - General Family Medicine 07/07/21
--- OUTSIDE RECORDS SUMMARY | 2024-09-09 08:02 | XMS_ITS | Clinical Summary ---
Author Organization [facility] Address [address] [place] [address] Care Team Providers Care Smt Technician Name Role Phone Unavailable Primary Care Provider [...]
--- OUTSIDE RECORDS SUMMARY | 2024-09-09 08:02 | XMS_ITS | Clinical Summary ---
Author Organization [facility] Address [address] [place], [address] [address] Phone Care Team Providers Care Landscape Architect And Planner Name Role Phone Nikolai Mott DO Unavailable [phone] Allergies No known active allergies Medications [...] Comments Blood Pressure 144/96 04/05/2015 1:20 PM CERAMICS TECHNICIAN Pulse 93 04/05/2015 1:20 PM CERAMICS TECHNICIAN Temperature 36.4 C (97.6 F) 04/05/2015 1:20 PM CERAMICS TECHNICIAN Respiratory Rate 20 04/05/2015 1:20 PM CERAMICS TECHNICIAN Oxygen Saturation 94% 04/05/2015 1:20 PM CERAMICS TECHNICIAN Inhaled Oxygen Concentration - - Weight 72.1 kg (159 lb) 04/05/2015 1:20 PM CERAMICS TECHNICIAN Height 147.3 cm (4' 10) 04/05/2015 1:20 PM CERAMICS TECHNICIAN Body Mass Index 33.23 04/05/2015 1:20 PM CERAMICS TECHNICIAN Plan of Treatment Health Maintenance Due Date [...] [facility] Care Teams Landscape Architect And Planner Relationship Specialty Start Date End Date Nikolai Mott DO Gastroenterology 01/17/15
== END 2024-09-09 07:59 | disposition home or self-care (01) ==
PROVIDERS: PCP Physician Assistant Medical; Visit Provider Internal Medicine Gastroenterology
DX: R11.10 Vomiting, unspecified (principal); K30 Functional dyspepsia
CPT/HCPCS: 78264; A9541

== ENCOUNTER 2024-12-28 10:20 | Outpatient (CLI) | payer MEDICARE, SELFPAY ==
--- OUTSIDE RECORDS SUMMARY | 2024-12-28 11:33 | XMS_ITS | Encounter Summary ---
Author Organization [facility] Address [address] [place] [address] Care Team Providers Care Hand Lens Polisher Name Role Phone Unavailable Primary Care Provider Unavailabl e Encounter Details Date Type Department Care Team (Late st Contact Info) Description 07/13/1998 Outpatient Historical [facility] Internal Medicine - [place] [address] [place] [address] [place] [address] [facility] [place] [address] Social History Tobacco Use Types Packs/Day Years Used Date Smoking Tobacco: Never Assessed Comments Unknown Sex and Gender Information Value Date Recorded Sex Assigned at Not on file Legal Sex Female 3:55 AM PROBATION SUPERVISOR Gender Identity Not on file Sexual Orientation Not on file documented as of this encounter Plan of Treatment Not on file documented as of this encounter Visit Diagnoses Not on filedocumented in this encounter
--- OUTSIDE RECORDS SUMMARY | 2024-12-28 11:33 | XMS_ITS | Clinical Summary ---
Author Organization [facility] Address [address] [facility] [place] [address] Care Team Providers Care Field Horticultural Specialty Grower Name Role Phone Gifty Ilene Primary Care Provider [phone] Source Comments [facility],non-owned Affiliates and Associated Physician Practices is amultiple site organization consisting of ambulatory clinics and hospital sitesin [place], [place], [place] and [place]. This disclosure is being madepursuant to the Care Everywhere program and may not contain all information available regarding this patient. Last updated 17.[facility] Allergies No known active allergies Medications * [...] on file Legal Sex Female 6:08 AM INFORMIX DEVELOPER Gender Identity Not on file Sexual Orientation [...] of 2) 2006 SCREENING FOR DIABETES 07/08/2021 DEPRESSION SCREENING 02/17/2024 COVID-19 VACCINE ( - 2024- season) 2024 12/10/2020, 03/13/2020, 02/14/2020 INFLUENZA VACCINE (#1) 2024 2, 12/07/2019, 12/16/2018, Additional history exists Respiratory Syncytial [...] patient's age to complete this topic Insurance [facility] MEDICARE [facility] Care Teams Field Horticultural Specialty Grower Relationship Specialty Start Date End Date Ilene Durbin DO [address] [place] [phone] PCP - General Family Medicine 07/07/21
--- OUTSIDE RECORDS SUMMARY | 2024-12-28 11:33 | XMS_ITS | Encounter Summary ---
Author Organization [facility] Address [address] [place] [address] Care Team Providers Care Equipment Cleaner And Tester Name Role Phone Unavailable Primary Care Provider Unavailabl e Encounter Details Date Type Department Care Team (Late st Contact Info) Description 03/05/1998 Outpatient Historical [facility] Internal Medicine - [place] [address] [place] [address] [place] [address] [facility] [place] [address] Social History Tobacco Use Types Packs/Day Years Used Date Smoking Tobacco: Never Assessed Comments Unknown Sex and Gender Information Value Date Recorded Sex Assigned at Not on file Legal Sex Female 3:55 AM PROFESSIONAL DEVELOPMENT INSTRUCTOR Gender Identity Not on file Sexual Orientation Not on file documented as of this encounter Plan of Treatment Not on file documented as of this encounter Visit Diagnoses Not on filedocumented in this encounter
--- OUTSIDE RECORDS SUMMARY | 2024-12-28 11:33 | XMS_ITS | Encounter Summary ---
Author Organization [facility] Address [address] [place] [address] Care Team Providers Care Car Deliverer Name Role Phone Unavailable Primary Care Provider Unavailabl e Encounter Details Date Type Department Care Team (Late st Contact Info) Description 03/19/1998 Outpatient Historical [facility] Internal Medicine - [place] [address] [place] [address] Selina Fall MD [address] [address] Social History Tobacco Use Types Packs/Day Years Used Date Smoking Tobacco: Never Assessed Comments Unknown Sex and Gender Information Value Date Recorded Sex Assigned at Not on file Legal Sex Female 3:55 AM CLIENT SERVER DEVELOPER Gender Identity Not on file Sexual Orientation Not on file documented as of this encounter Plan of Treatment Not on file documented as of this encounter Visit Diagnoses Not on filedocumented in this encounter
--- OUTSIDE RECORDS SUMMARY | 2024-12-28 11:34 | XMS_ITS | Clinical Summary ---
Author Organization [facility] Address [address] [place], [address] [address] Phone Care Team Providers Care Credit And Loan Collections Supervisor Name Role Phone Nikolai Mott DO Unavailable [phone] Allergies No known active allergies Medications [...] Comments Blood Pressure 144/96 04/05/2015 1:20 PM AEGIS CONSOLE OPERATOR TRACK Pulse 93 04/05/2015 1:20 PM AEGIS CONSOLE OPERATOR TRACK Temperature 36.4 C (97.6 F) 04/05/2015 1:20 PM AEGIS CONSOLE OPERATOR TRACK Respiratory Rate 20 04/05/2015 1:20 PM AEGIS CONSOLE OPERATOR TRACK Oxygen Saturation 94% 04/05/2015 1:20 PM AEGIS CONSOLE OPERATOR TRACK Inhaled Oxygen Concentration - - Weight 72.1 kg (159 lb) 04/05/2015 1:20 PM AEGIS CONSOLE OPERATOR TRACK Height 147.3 cm (4' 10) 04/05/2015 1:20 PM AEGIS CONSOLE OPERATOR TRACK Body Mass Index 33.23 04/05/2015 1:20 PM AEGIS CONSOLE OPERATOR TRACK Plan of Treatment Health Maintenance Due Date Last Done Comments Hepatitis C Virus (HCV) Screening 1955 TdaP Immunization 1955 Cologuard 2001 Immunochemical Fecal Occult Blood 2001 Pneumococcal Immunization (5 0+ years) (1 of 1 - PCV) 2006 Zoster Immunization (1 of 2) 2006 Mammogram 04/22/2016 04/23/2015 Influenza Immunization (#1) 2024 12/17/2014 SARS-COV-2 Immunization ( season) 2024 Colonoscopy 12/28/2024 12/28/2014 Colorectal Cancer Screening 12/28/2024 [...] Most Recently Relevant to Health Maintenance Insurance [facility] Care Teams Credit And Loan Collections Supervisor Relationship Specialty Start Date End Date Nikolai Mott DO Gastroenterology 01/17/15
--- OUTSIDE RECORDS SUMMARY | 2024-12-28 11:34 | XMS_ITS | Encounter Summary ---
Author Organization [facility] Address [address] [place] [address] Care Team Providers Care Roadway Engineer Name Role Phone Unavailable Primary Care Provider Unavailabl e Encounter Details Date Type Department Care Team (Late st Contact Info) Description 02/17/2002 Outpatient Historical [facility] Internal Medicine - [place] [address] [place] [address] [place] [address] [facility] [place] [address] Social History Tobacco Use Types Packs/Day Years Used Date Smoking Tobacco: Never Assessed Comments Unknown Sex and Gender Information Value Date Recorded Sex Assigned at Not on file Legal Sex Female 3:55 AM JAVA DEVELOPER Gender Identity Not on file Sexual Orientation Not on file documented as of this encounter Plan of Treatment Not on file documented as of this encounter Visit Diagnoses Not on filedocumented in this encounter
--- OUTSIDE RECORDS SUMMARY | 2024-12-28 11:34 | XMS_ITS | Encounter Summary ---
Author Organization [facility] Address [address] [place] [address] Care Team Providers Care Salvage Mechanic Name Role Phone Unavailable Primary Care Provider Unavailabl e Encounter Details Date Type Department Care Team (Late st Contact Info) Description 08/10/1998 Outpatient Historical [facility] EstevezAric MD [address] [facility] [address] [facility] [address] [place] [address] Diarrhea (Primary Dx) Social History Tobacco Use Types Packs/Day Years Used Date Smoking Tobacco: Never Assessed Comments Unknown Sex and Gender Information Value Date Recorded Sex Assigned at Not on file Legal Sex Female 3:55 AM AUTOMOTIVE SPECIALTY TECHNICIAN Gender Identity Not on file Sexual Orientation Not on file documented as of this encounter Plan of Treatment Not on file documented as of this encounter Visit Diagnoses Diagnosis Diarrhea- Primary documented in this encounter
--- OUTSIDE RECORDS SUMMARY | 2024-12-28 11:34 | XMS_ITS | Clinical Summary ---
Author Organization [facility] Address [address] [facility] Attn: Epic Prelude ADT [place] [address] Care Team Providers Care Policy Writer Sales Name Role Phone Unavailable Primary Care [...] on file Legal Sex Female 3:55 AM MANAGER INSPECTION Gender Identity Not on file Sexual Orientation [...]
--- OUTSIDE RECORDS SUMMARY | 2024-12-28 11:34 | XMS_ITS | Encounter Summary ---
Author Organization [facility] Address [address] [place] [address] Care Team Providers Care Floral Associate Name Role Phone Unavailable Primary Care Provider Unavailabl e Encounter Details Date Type Department Care Team (Late st Contact Info) Description 05/18/2001 Outpatient Historical [facility] Internal Medicine - [place] [address] [place] [phone] [place] [address] [facility] [place] [phone] Social History Tobacco Use Types Packs/Day Years Used Date Smoking Tobacco: Never Assessed Comments Unknown Sex and Gender Information Value Date Recorded Sex Assigned at Not on file Legal Sex Female 3:55 AM UI SOFTWARE DEVELOPER Gender Identity Not on file Sexual Orientation Not on file documented as of this encounter Plan of Treatment Not on file documented as of this encounter Visit Diagnoses Not on filedocumented in this encounter
--- OUTSIDE RECORDS SUMMARY | 2024-12-28 11:34 | XMS_ITS | Encounter Summary ---
Author Organization [facility] Address [address] [place] [address] Care Team Providers Care Harbor Patrol Police Name Role Phone Unavailable Primary Care Provider Unavailabl e Encounter Details Date Type Department Care Team (Late st Contact Info) Description 07/23/1998 Outpatient Historical [facility] Internal Medicine - [address] [place] [phone] [place] [address] [facility] [place] [address] Social History Tobacco Use Types Packs/Day Years Used Date Smoking Tobacco: Never Assessed Comments Unknown Sex and Gender Information Value Date Recorded Sex Assigned at Not on file Legal Sex Female 3:55 AM SERVICE SPECIALIST Gender Identity Not on file Sexual Orientation Not on file documented as of this encounter Plan of Treatment Not on file documented as of this encounter Visit Diagnoses Not on filedocumented in this encounter
--- OUTSIDE RECORDS SUMMARY | 2024-12-28 11:34 | XMS_ITS | Encounter Summary ---
Author Organization [facility] Address [address] [place] [address] Care Team Providers Care Wallpaper Consultant Name Role Phone Unavailable Primary Care Provider Unavailabl e Encounter Details Date Type Department Care Team (Late st Contact Info) Description 01/17/2002 Outpatient Historical [facility] Internal Medicine - [place] [address] [place] [phone] [place] [address] [facility] [place] [address] Social History Tobacco Use Types Packs/Day Years Used Date Smoking Tobacco: Never Assessed Comments Unknown Sex and Gender Information Value Date Recorded Sex Assigned at Not on file Legal Sex Female 3:55 AM CASH POSTING SPECIALIST Gender Identity Not on file Sexual Orientation Not on file documented as of this encounter Plan of Treatment Not on file documented as of this encounter Visit Diagnoses Not on filedocumented in this encounter
--- OUTSIDE RECORDS SUMMARY | 2024-12-28 11:34 | XMS_ITS | Encounter Summary ---
Author Organization [facility] Address [address] [place] [address] Care Team Providers Care Hydraulic Lift Operator Name Role Phone Unavailable Primary Care Provider Unavailabl e Encounter Details Date Type Department Care Team (Late st Contact Info) Description 12/24/1998 Outpatient Historical [facility] Internal Medicine - [place] [address] [place] [phone] [place] [address] [facility] [place] [address] Social History Tobacco Use Types Packs/Day Years Used Date Smoking Tobacco: Never Assessed Comments Unknown Sex and Gender Information Value Date Recorded Sex Assigned at Not on file Legal Sex Female 3:55 AM SOLE SKIVER Gender Identity Not on file Sexual Orientation Not on file documented as of this encounter Plan of Treatment Not on file documented as of this encounter Visit Diagnoses Not on filedocumented in this encounter
--- OUTSIDE RECORDS SUMMARY | 2024-12-28 11:34 | XMS_ITS | Encounter Summary ---
Author Organization [facility] Address [address] [place] [address] Care Team Providers Care Maintenance Shop Clerk Name Role Phone Unavailable Primary Care Provider Unavailabl e Encounter Details Date Type Department Care Team (Late st Contact Info) Description 01/15/2001 Outpatient Historical [facility] Internal Medicine - [place] [address] [place] [address] [place] [address] [place] [address] Social History Tobacco Use Types Packs/Day Years Used Date Smoking Tobacco: Never Assessed Comments Unknown Sex and Gender Information Value Date Recorded Sex Assigned at Not on file Legal Sex Female 3:55 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
--- OUTSIDE RECORDS SUMMARY | 2024-12-28 11:34 | XMS_ITS | Encounter Summary ---
Author Organization [facility] Address [address] [place] [address] Care Team Providers Care Professor Of German Name Role Phone Unavailable Primary Care Provider Unavailabl e Encounter Details Date Type Department Care Team (Late st Contact Info) Description 04/10/1999 Outpatient Historical [facility] Internal Medicine - [place] [address] [place] [phone] [place] [address] [facility] [place] [address] Social History Tobacco Use Types Packs/Day Years Used Date Smoking Tobacco: Never Assessed Comments Unknown Sex and Gender Information Value Date Recorded Sex Assigned at Not on file Legal Sex Female 3:55 AM PIER HAND Gender Identity Not on file Sexual Orientation Not on file documented as of this encounter Plan of Treatment Not on file documented as of this encounter Visit Diagnoses Not on filedocumented in this encounter
--- OUTSIDE RECORDS SUMMARY | 2024-12-28 11:34 | XMS_ITS | Encounter Summary ---
Author Organization [facility] Address [address] [place] [address] Care Team Providers Care Kennel Helper Name Role Phone Unavailable Primary Care Provider Unavailabl e Encounter Details Date Type Department Care Team (Late st Contact Info) Description 05/29/2000 Outpatient Historical [facility] Internal Medicine - [place] [address] [place] [phone] [place] [address] [facility] [place] [address] Social History Tobacco Use Types Packs/Day Years Used Date Smoking Tobacco: Never Assessed Comments Unknown Sex and Gender Information Value Date Recorded Sex Assigned at Not on file Legal Sex Female 3:55 AM SMUDGER Gender Identity Not on file Sexual Orientation Not on file documented as of this encounter Plan of Treatment Not on file documented as of this encounter Visit Diagnoses Not on filedocumented in this encounter
--- OUTSIDE RECORDS SUMMARY | 2024-12-28 11:34 | XMS_ITS | Encounter Summary ---
Author Organization [facility] Address [address] [place] [address] Care Team Providers Care Behavioral Health Technician Name Role Phone Unavailable Primary Care Provider Unavailabl e Encounter Details Date Type Department Care Team (Late st Contact Info) Description 09/14/2000 Outpatient Historical [facility] Internal Medicine - [place] [address] [place] [phone] [place] [address] [facility] [place] [address] Social History Tobacco Use Types Packs/Day Years Used Date Smoking Tobacco: Never Assessed Comments Unknown Sex and Gender Information Value Date Recorded Sex Assigned at Not on file Legal Sex Female 3:55 AM RADIOLOGY TECHNICIAN Gender Identity Not on file Sexual Orientation Not on file documented as of this encounter Plan of Treatment Not on file documented as of this encounter Visit Diagnoses Not on filedocumented in this encounter
--- OUTSIDE RECORDS SUMMARY | 2024-12-28 11:34 | XMS_ITS | Encounter Summary ---
Author Organization [facility] Address [address] [facility] [place] [address] Care Team Providers Care Research Methods Instructor Name Role Phone Ilene Durbin DO Primary Care Provider [phone] Encounter Details Date Type Department Care Team (Late st Contact Info) Description 07/07/2021 Ophth Exam [facility] [address] [place] [address] Champ Islas IV, DO [address] [place] [address] Social History Tobacco Use Types Packs/Day Years Used Date Smoking Tobacco: Never Assessed Comments Unknown Sex and Gender Information Value Date Recorded Sex Assigned at Not on file Legal Sex Female 6:08 AM LEAD RADIOLOGIC TECHNOLOGIST Gender Identity Not on file Sexual Orientation Not on file documented as of this encounter Functional Status documented as of this encounter Plan of Treatment Not on file documented as of this encounter Visit Diagnoses Not on filedocumented in this encounter Care Teams Research Methods Instructor Relationship Specialty Start Date End Date Ilene Durbin DO [facility] [place] [address] PCP - General Family Medicine 07/07/21 documented as of this encounter
[2024-12-28 11:42] LABS: Hematocrit 44.8 % (37.0-47.0); Hemoglobin 14.6 g/dL (12.0-15.0); Mean Corpuscular HGB Conc 32.6 g/dl (32-36); Mean Corpuscular Hemoglobin 31.4 pg (26-34); Mean Corpuscular Volume 96.3 fl (80-100); Platelet Count Result 250 k/mm3 (150-375); Red Blood Count 4.65 M/mm3 (4.2-5.4); White Blood Count 6.5 K/mm3 (4.5-10.0)
[2024-12-28 12:04] LABS: Alanine Aminotransferase 22 U/L (6-35); Albumin Level 4.5 g/dL (3.5-5.1); Alkaline Phosphatase 72 U/L (38-126); Anion Gap 9 mmol/L (4-12); Aspartate Amino Transferase 34 U/L (14-36); Bilirubin,Total 0.6 mg/dL (0.2-1.3); Blood Urea Nitrogen 19 mg/dL (7-17); Calcium 9.5 mg/dL (8.4-10.2); Carbon Dioxide 27 mmol/L (22-30); Chloride 101 mmol/L (98-107); Estimated Glomerular Filt Rate > 60; Glucose 95 mg/dL (65-110); Potassium 3.8 mmol/L (3.4-5.0); Sodium 137 mmol/L (137-145); Total Protein 7.9 g/dL (6.3-8.2)
[2024-12-29 16:08] LABS: Deamidated Gliadin Abs, IgA 3 units (0-19); Deamidated Gliadin Abs, IgG 9 units (0-19); Immunoglobulin A, Qn 352 mg/dL (87-352)
== END 2024-12-28 10:21 | disposition home or self-care (01) ==
LOC: ANHLAB 10:21
PROVIDERS: PCP Physician Assistant Medical; Visit Provider Nurse Practitioner Family
DX: K80.20 Calculus of gallbladder without cholecystitis without obstruction (principal)
CPT/HCPCS: 36415; 80053; 82784; 85027; 86231; 86258

== ENCOUNTER 2025-02-04 17:17 | Emergency (ER) | payer MEDICARE, SELFPAY ==
--- NOTE | 2025-02-04 17:19 | ED_ITS ---
HPI - Ear Problem General Chief complaint: Ear Stated complaint: L Ear Source: patient, RN notes reviewed and old records reviewed Mode of arrival: ambulatory Limitations: no limitations History of Present Illness HPI Narrative: 69-year-old female presents to the [facility] with left ear pain for 5-6 days. Has had sinus congestion. Recently traveled from [place] via plane. Patient denies fevers. Denies any dizziness. Patient states that her tinnitus is a little bit worse. Has been taking Benadryl, Advil as well as using salt water gargles. Patient also concerned for a sore to the roof of her mouth. Related Data Home Medications ?Medication ?Instructions ?Recorded ?Confirmed ?Last Taken ?Type cholecalciferol (vitamin D3) 125 250 mcg PO DAILY 11/1801/06/25 08/23/24 History mcg (5,000 unit) tablet (Vitamin D3) zinc acetate 50 mg (zinc) capsule 50 mg PO DAILY 11/2801/06/25 Unknown History Allergies Allergy/AdvReac Type Severity Reaction Status Date / Time No Known Allergies Allergy Verified 02/04/25 17:27 Review of Systems Review of Systems: All systems reviewed & are unremarkable except as noted in HPI and below Constitutional: Constitutional: Reports no additional constitutional complaints ENT: Reports as per HPI, Reports otalgia (left) and Reports other ( Roof of mouth sore) Cardiovascular: Cardiovascular: Reports no additional cardiovascular complaints, Denies chest pain and Denies dyspnea Respiratory: Respiratory: Reports no additional respiratory complaints, Denies chest congestion, Denies cough and Denies dyspnea Musculoskeletal: Musculoskeletal: Reports no additional musculoskeletal complaints Integumentary/Breasts: Skin/Breast: Reports system reviewed and no additional complaints, except as docu PMFSH Past Medical History Medical History Liver hemangioma RUQ pain Gastroparesis Regurgitation of food Atypical nevi Insomnia BMI 33.0-33.9,adult GERD (gastroesophageal reflux disease) Non-cardiac chest pain Hyperlipidemia Benign neoplasm of rectum Essential (primary) hypertension Hiatal hernia Vitamin D deficiency, unspecified Surgical History Surgical History History of repair of hiatal hernia 12/22/19: Paraesophageal hiatal hernia repair S/P cataract surgery H/O unilateral oophorectomy S/P partial hysterectomy S/P ectopic History of Family History Family History Mother Hypertension Patient's mother is in good health Acute myocardial infarction Father Patient's father is in good health Malignant neoplasm of prostate Family history of Parkinson's disease Patient's father is Grandparent Malignant neoplasm of prostate Family history of emphysema Family history of dementia Social History Social History Social History: 03/16/24 very confident with medical forms Smoking packs per day: 0 Smoking cigarettes per day: 0.0 Years smoked: 0 Smoking pack-years: 0.00 Smoking status: Never smoker Second hand tobacco smoke exposure: No Alcohol intake: current Drinks per week: 1 Substance use: never Substance use type: does not use Lack of Transportation: No Lack of Food: Never True Current Housing: I Have Housing Concerned About Future Housing: No Difficulty Paying Gas/Electric Bills: No Difficulty Paying for Meds: No Currently Unemployed: No Education: Bachelor's Degree Difficulty w/ Childcare or Family Care: No Living arrangements: with family Occupation/Education: occupation Gender identity (if verbalized by the patient): Female Sexual Orientation (if Verbalized by the Patient): Straight or Heterosexual Spiritual care concerns: No Agree to blood products: Yes Comments At the time of my signature, I reviewed and agree with the nursing past medical, surgical, social, and family history. There is no relevant family history pertinent to the patient complaint. Exam Const: General: cooperative, healthy appearing, comfortable, no acute distress, well developed, alert and well nourished Nutritional Appearance: well nourished Orientation/consciousness: patient oriented x3 Limitations: no limitations HENMT: Head: normal to inspection Ears: hearing grossly normal bilaterally, external ears normal, EAC's normal, mastoids normal, no periauricular adenopathy and TM abnormal bulging on the left, erythematous on the left and with loss of landmarks Face/Nose/Sinus: Normal external nose present, Normal nares present and Normal nasal mucous membranes and turbinates present Face and sinus: normal facial exam, sinuses nontender and face symmetric Mouth: Yes lip normal, Yes tongue normal, Yes moist mucous membranes and Yes other ( small what appears to be a burn to the roof of the mouth.) Eyes: General: appearance normal, both eyes and all related structures Alignment and Position: alignment normal Neck: Neck: normal visual inspection, full ROM, no lymphadenopathy and no meningeal signs Chest: Chest palpation & inspection: normal inspection of the chest Resp: Effort & Inspection: normal respiratory effort and able to speak in complete sentences Auscultation: clear to auscultation bilaterally, no crackles, no rales, no rhonchi and no wheezes Cardio: Rate: regular rate Skin: General skin exam: normal color and no rashes or lesions noted Neuro: General: patient oriented x3, gait normal, moves all extremities and no meningeal signs Cognition (Neuro): normal cognition Speech: normal speech Gait exam (Neuro): Normal gait present Extrem: General: normal to inspection, full ROM, capillary refill normal and normal gait Psych: Appearance: grossly normal and well kempt Mental Status: mental status grossly normal Speech and movement: Normal speech and movement present and Clear speech present Affect: normal affect Attitude: cooperative Course Course Level of Care: Express Care Visit Vital Signs Vital signs: Vital Signs Temperature 97.6 F 02/04/25 17:29 Pulse Rate 85 02/04/25 17:29 Respiratory Rate 16 02/04/25 17:29 Blood Pressure 139/82 02/04/25 17:29 Pulse Oximetry 98 02/04/25 17:29 Oxygen Delivery Room Air 02/04/25 17:29 Temperature 97.6 F 02/04/25 17:29 Pulse Rate 85 02/04/25 17:29 Respiratory Rate 16 02/04/25 17:29 Blood Pressure 139/82 02/04/25 17:29 Pulse Oximetry 98 02/04/25 17:29 Oxygen Delivery Room Air 02/04/25 17:29 reviewed MDM MDM Narrative Medical decision making narrative: Patient sitting in exam room. Patient is nontoxic, vitals stable. Patient with 5-6 day history of increasing left ear pain. Ear is bulging, pink in color, patient is appropriate for outpatient treatment with close follow-up Discharge instructions reviewed with patient, as well as provided in writing per nursing staff. The instructions also include specific and strict return/GO TO THE ER as well as f/u information. All questions have been answered, and the patient deny any further questions with discharge and discharge plan. Some parts of this dictation were generated by voice recognition software and may contain typographical and/or grammatical inaccuracies. Differential Diagnosis Differential Diagnosis: Differential diagnostic considerations for upper respiratory infection include upper respiratory infection, croup, otitis media, sinusitis, viral infection, bronchitis, influenza, pharyngitis, strep, uvulitis.? Medical Records I have reviewed the following patient records and this information was taken into consideration when formulating the assessment and plan.: previous clinic visits Discharge Plan Discharge Clinical Impression: Acute left otitis media, Mouth sore Patient Disposition: Home Condition: Stable Instructions: Antibiotic Form, Ear Infection (GEN) Additional Instructions: take Tylenol as needed for pain use Flonase and take Claritin per package instructions daily follow-up with primary care provider if the sore in your mouth is not improving please follow-up either with her dental provider or your primary care provider for further evaluation Patient Language: South Korean Prescriptions: New amoxicillin 875 mg tablet 875 mg PO Q12H Qty: 20 0RF No Action zinc acetate 50 mg (zinc) capsule 50 mg PO DAILY dicyclomine 10 mg capsule 10 mg PO TID PRN (Reason: abdominal pain) Qty: 30 0RF cholecalciferol (vitamin D3) [Vitamin D3] 125 mcg (5,000 unit) Tablet 250 mcg PO DAILY rosuvastatin 5 mg tablet See Rx Instructions .ROUTE .COMPLEX Qty: 90 1RF Dose Instruction: TAKE 1 TABLET BY MOUTH DAILY Rx Instructions: TAKE 1 TABLET BY MOUTH DAILY lisinopril-hydrochlorothiazide 10-12.5 mg tablet See Rx Instructions .ROUTE .COMPLEX Qty: 90 1RF Dose Instruction: TAKE 1 TABLET BY MOUTH DAILY Rx Instructions: TAKE 1 TABLET BY MOUTH DAILY raloxifene 60 mg tablet See Rx Instructions .ROUTE .COMPLEX Qty: 90 0RF Dose Instruction: TAKE 1 TABLET BY MOUTH DAILY Rx Instructions: TAKE 1 TABLET BY MOUTH DAILY Follow-up/Referrals: Tiffany Smith APRN [Primary Care Provider, Family Practice] - 2 Weeks Clinical Impression: Acute left otitis media; Mouth sore Time of Disposition: 17:45
--- OUTSIDE RECORDS SUMMARY | 2025-02-04 17:19 | XMS_ITS | Encounter Summary ---
Author Organization [facility] Address [address] [facility] [place] [address] Care Team Providers Care Director Of Retail Merchandising Name Role Phone Ilene Durbin DO Primary Care Provider Encounter Details Date Type Department Care Team (Late st Contact Info) Description 07/07/2021 Ophth Exam [facility] [address] [place] [address] Champ Islas IV, DO [address] [place] [address] Social History Tobacco Use Types Packs/Day Years Used Date Smoking Tobacco: Never Assessed Comments Unknown Sex and Gender Information Value Date Recorded Sex Assigned at Not on file Legal Sex Female 6:08 AM MENTAL HEALTH ADVANCED PRACTICE NURSE Gender Identity Not on file Sexual Orientation Not on file documented as of this encounter Plan of Treatment Not on file documented as of this encounter Visit Diagnoses Not on filedocumented in this encounter Care Teams Director Of Retail Merchandising Relationship Specialty Start Date End Date Ilene Durbin DO [facility] [place] [address] PCP - General Family Medicine 07/07/21 documented as of this encounter
--- OUTSIDE RECORDS SUMMARY | 2025-02-04 17:19 | XMS_ITS | Encounter Summary ---
Author Organization [facility] Address [address] [place] [address] Care Team Providers Care Cylinder Block Hole Reliner Name Role Phone Unavailable Primary Care Provider Unavailabl e Encounter Details Date Type Department Care Team (Late st Contact Info) Description 03/05/1998 Outpatient Historical [facility] Internal Medicine - [place] [address] [place] [phone] [place] [address] [facility] [place] [address] Social History Tobacco Use Types Packs/Day Years Used Date Smoking Tobacco: Never Assessed Comments Unknown Sex and Gender Information Value Date Recorded Sex Assigned at Not on file Legal Sex Female 3:55 AM OR ASSISTANT Gender Identity Not on file Sexual Orientation Not on file documented as of this encounter Plan of Treatment Not on file documented as of this encounter Visit Diagnoses Not on filedocumented in this encounter
--- OUTSIDE RECORDS SUMMARY | 2025-02-04 17:19 | XMS_ITS | Encounter Summary ---
Author Organization [facility] Address [address] [place] [address] Care Team Providers Care Account Receivable Clerk Name Role Phone Unavailable Primary Care Provider Unavailabl e Encounter Details Date Type Department Care Team (Late st Contact Info) Description 12/24/1998 Outpatient Historical [facility] Internal Medicine - [place] [address] [place] [address] [place] [address] [facility] [place] [address] Social History Tobacco Use Types Packs/Day Years Used Date Smoking Tobacco: Never Assessed Comments Unknown Sex and Gender Information Value Date Recorded Sex Assigned at Not on file Legal Sex Female 3:55 AM PATTERN CUTTER Gender Identity Not on file Sexual Orientation Not on file documented as of this encounter Plan of Treatment Not on file documented as of this encounter Visit Diagnoses Not on filedocumented in this encounter
--- OUTSIDE RECORDS SUMMARY | 2025-02-04 17:19 | XMS_ITS | Encounter Summary ---
Author Organization [facility] Address [address] [place] [address] Care Team Providers Care Warehouse Helper Name Role Phone Unavailable Primary Care Provider Unavailabl e Encounter Details Date Type Department Care Team (Late st Contact Info) Description 09/14/2000 Outpatient Historical [facility] Internal Medicine - [place] [address] [place] [phone] [place] [address] [facility] [place] [address] Social History Tobacco Use Types Packs/Day Years Used Date Smoking Tobacco: Never Assessed Comments Unknown Sex and Gender Information Value Date Recorded Sex Assigned at Not on file Legal Sex Female 3:55 AM ENSEMBLE MEMBER Gender Identity Not on file Sexual Orientation Not on file documented as of this encounter Plan of Treatment Not on file documented as of this encounter Visit Diagnoses Not on filedocumented in this encounter
--- OUTSIDE RECORDS SUMMARY | 2025-02-04 17:19 | XMS_ITS | Encounter Summary ---
Author Organization [facility] Address [address] [place] [address] Care Team Providers Care Web Ui Software Engineer Name Role Phone Unavailable Primary Care Provider Unavailabl e Encounter Details Date Type Department Care Team (Late st Contact Info) Description 07/23/1998 Outpatient Historical [facility] Internal Medicine - [place] [address] [place] [address] [place] [address] [facility] [place] [address] Social History Tobacco Use Types Packs/Day Years Used Date Smoking Tobacco: Never Assessed Comments Unknown Sex and Gender Information Value Date Recorded Sex Assigned at Not on file Legal Sex Female 3:55 AM R D INTERN Gender Identity Not on file Sexual Orientation Not on file documented as of this encounter Plan of Treatment Not on file documented as of this encounter Visit Diagnoses Not on filedocumented in this encounter
--- OUTSIDE RECORDS SUMMARY | 2025-02-04 17:19 | XMS_ITS | Encounter Summary ---
Author Organization [facility] Address [address] [place] [address] Care Team Providers Care [address] Light Lamp Cleaner Name Role Phone Unavailable Primary Care Provider Unavailabl e Encounter Details Date Type Department Care Team (Late st Contact Info) Description 07/13/1998 Outpatient Historical [facility] Internal Medicine - [place] [address] [place] [address] [place] [address] [address] [facility] [place] [address] Social History Tobacco Use Types Packs/Day Years Used Date Smoking Tobacco: Never Assessed Comments Unknown Sex and Gender Information Value Date Recorded Sex Assigned at Not on file Legal Sex Female 3:55 AM DRAFTER TOOL DESIGN Gender Identity Not on file Sexual Orientation Not on file documented as of this encounter Plan of Treatment Not on file documented as of this encounter Visit Diagnoses Not on filedocumented in this encounter
--- OUTSIDE RECORDS SUMMARY | 2025-02-04 17:19 | XMS_ITS | Clinical Summary ---
Author Organization [facility] Address [address] [place], [address] [address] Phone Care Team Providers Care Warehouse Trainer Name Role Phone Nikolai Mott DO Unavailable [phone] Allergies No known active allergies Medications [...] Comments Blood Pressure 144/96 04/05/2015 1:20 PM NUTRITION PARTNER Pulse 93 04/05/2015 1:20 PM NUTRITION PARTNER Temperature 36.4 C (97.6 F) 04/05/2015 1:20 PM NUTRITION PARTNER Respiratory Rate 20 04/05/2015 1:20 PM NUTRITION PARTNER Oxygen Saturation 94% 04/05/2015 1:20 PM NUTRITION PARTNER Inhaled Oxygen Concentration - - Weight 72.1 kg (159 lb) 04/05/2015 1:20 PM NUTRITION PARTNER Height 147.3 cm (4' 10) 04/05/2015 1:20 PM NUTRITION PARTNER Body Mass Index 33.23 04/05/2015 1:20 PM NUTRITION PARTNER Plan of Treatment Health Maintenance Due Date [...] complete this topic Human Papillomavirus (HPV) Immunization (No Doses Required) Completed Meningococcal Immunization (ACWY) Aged Out No longer eligible based on patient's age to complete this topic Rotavirus Immunization Aged Out No lo nger eligible based on patient's age to complete this topic Procedures Procedure Name Priority Date/Time Associated Diagnosis Comments COLONOSCOPY Routine 12/28/2014 from Last 3 Months or Most Recently Relevant to Health Maintenance Results * COLONOSCOPY (12/28/2014) Nikolai Mott DO PROCEDURE/MINOR SURGICAL ORDERA BLES Final Result from Last 3 Months or Most Recently Relevant to Health Maintenance Insurance [facility] Care Teams Warehouse Trainer Relationship Specialty Start Date End Date Nikolai Mott DO Gastroenterology 01/17/15
--- OUTSIDE RECORDS SUMMARY | 2025-02-04 17:19 | XMS_ITS | Encounter Summary ---
Author Organization [facility] Address [address] [place] [address] Care Team Providers Care Clinical Pharmacist Name Role Phone Unavailable Primary Care Provider Unavailabl e Encounter Details Date Type Department Care Team (Late st Contact Info) Description 08/10/1998 Outpatient Historical [facility] EstevezAric MD [address] [facility] [address] [place] [address] Diarrhea (Primary Dx) Social History Tobacco Use Types Packs/Day Years Used Date Smoking Tobacco: Never Assessed Comments Unknown Sex and Gender Information Value Date Recorded Sex Assigned at Not on file Legal Sex Female 3:55 AM PERIOPERATIVE ASSISTANT Gender Identity Not on file Sexual Orientation Not on file documented as of this encounter Plan of Treatment Not on file documented as of this encounter Visit Diagnoses Diagnosis Diarrhea- Primary documented in this encounter
--- OUTSIDE RECORDS SUMMARY | 2025-02-04 17:19 | XMS_ITS | Encounter Summary ---
Author Organization [facility] Address [address] [place] [address] Care Team Providers Care Saloonkeeper Name Role Phone Unavailable Primary Care Provider Unavailabl e Encounter Details Date Type Department Care Team (Late st Contact Info) Description 01/15/2001 Outpatient Historical [facility] Internal Medicine - [place] [address] [place] [address] [place] [address] [place] [address] Social History Tobacco Use Types Packs/Day Years Used Date Smoking Tobacco: Never Assessed Comments Unknown Sex and Gender Information Value Date Recorded Sex Assigned at Not on file Legal Sex Female 3:55 AM VICE PRESIDENT NETWORK Gender Identity Not on file Sexual Orientation Not on file documented as of this encounter Plan of Treatment Not on file documented as of this encounter Visit Diagnoses Not on filedocumented in this encounter
--- OUTSIDE RECORDS SUMMARY | 2025-02-04 17:19 | XMS_ITS | Clinical Summary ---
Author Organization [facility] Address [address] [place] [address] Care Team Providers Care Deportation Examiner Name Role Phone Tiffany Saha Primary Care Provider Encounters Date Type Department Care Team Description 11/10/2024 12:54 PM CDT - 11/10/2024 11:59 PM CDT Hospital Encounter [facility] [address] [place] [address] Tiffany Saha FNP Discharge Disposition: Home or Self Care (Routine Discharge) 11/10/2024 Travel from Last 3 Months Immunizations Immunization Administration Dates Next Due MODERNA COVID-19 (12+) MRNA, LNP-S, PF, 100 MCG/ 0.5 ML DOSE 03/13/2020,02/14/2020 Social History Tobacco Use Types Packs/Day Years Used Date Smoking Tobacco: Never Assessed Comments Unknown Sex and Gender Information Value Date Recorded Sex Assigned at Female 11/10/2024 12:45 PM CDT Legal Sex Female 7:22 PM CDT Gender [...] Screening 1996 DTaP, Tdap and Td Vaccines (1 - Tdap) 03/20/1999 03/19/1999 Pneumococcal Vaccine: 50+ Years (1 of 1 - PCV) 2006 Zoster Vaccines (3 of 3) 02/02/2020 020, 12/08/2019, 06/05/2017, Additional history exists Annual Medicare Wellness Visit 2021 Dexa Scan (General) 2021 COVID-19 Vaccine (3 - season) 2024 03/13/2020, 02/14/2020 Influenza Adult (#1) 2024 11/27/2021, 12/07/2019, 11/30/2017, Additional history exists RSV Immunization or 60+ Years (1 - 1-dose 75+ series) 05/22/2031 Hepatitis A Vaccines Aged Out No long er eligible based on patient's age to complete this topic Meningococcal B Vaccine Aged Out No l onger eligible based on patient's age to complete this topic Meningococcal Vaccine Aged Out No alexus fiona eligible based on patient's age to complete this topic RSV Immunizations Under 20 Months Aged Out No longer eligible based on patient's age to complete this topic Procedures Procedure Name Priority Date/Time Associated Diagnosis Comments US ABD LIMITED STAT 11/10/2024 1:24 PM CDT Right upper quadrant abdominal pain from Last 3 Months Results * US ABD LIMITED (11/10/2024 1:24 PM CDT) Anatomical Region Laterality Modality Abdomen Ultrasound 11/10/2024 1:33 PM CDT Impressions 11/10/2024 1:36 PM CDT IMPRESSION: 1. Numerous gallstones are present. No significant gallbladder wall thickening or pericholecystic fluid identified to suggest acute cholecystitis, however sonographic Valverde sign is reported positive. If there is high clinical suspicion for acute cholecystitis, HIDA scan could be performed for further evaluation. 2. Common bile duct at upper limits of normal. Recommend correlation with LFTs. Ordered By: TIFFANY SAHA Interpreted By: Jason Martinez MD, 11/10/2024 1:33 PM Narrative 11/10/2024 1:36 PM CDT [facility] [address] [place] [address] EXAM: ABDOMINAL ULTRASOUND LIMITED INDICATION: RUQ abdominal pain TECHNIQUE: Grayscale, Color, and Spectral Doppler images of the right upper quadrant abdomen were obtained. COMPARISON: CT abdomen 10/13/2011. FINDINGS: Pancreas: Partially visualized pancreas demonstrates normal echogenicity. Liver: Normal echogenicity. The liver measures 13.0 cm. The main portal vein is patent with appropriate direction of flow. There is a hyperechoic mass identified in the right hepatic lobe measuring 1.7 x 1.5 x 1.8 cm. No hypoechoic rim is identified. Findings compatible with a benign hemangioma. No specific follow-up is required. Gallbladder: Numerous shadowing gallstones are present. The gallbladder is moderately distended measuring up to 11.9 cm. Gallbladder wall thickness is within normal limits measuring 1.5 mm. No pericholecystic fluid. Sonographic Valverde sign is positive. Bile Ducts: Common bile duct is is at upper limits of normal measuring 6 mm. Recommend correlation with LFTs. Right Kidney: Unremarkable. No hydronephrosis. The right kidney measures approximately 9.8 x 3.8 x 4.3 cm. Procedure Note Jason Martinez MD - 11/10/2024 [facility] [address] [place] [address] EXAM: ABDOMINAL ULTRASOUND LIMITED INDICATION: RUQ abdominal pain TECHNIQUE: Grayscale, Color, and Spectral Doppler images of the rightupper quadrant abdomen were obtained. COMPARISON: CT abdomen 10/13/2011. FINDINGS: Pancreas: Partially visualized pancreas demonstrates normal echogenicity. Liver: Normal echogenicity. The liver measures 13.0 cm. The main portalvein is patent with appropriate direction of flow. There is a hyperechoicmass identified in the right hepatic lobe measuring 1.7 x 1.5 x 1.8 cm. Nohypoechoic rim is identified. Findings compatible with a benignhemangioma. No specific follow-up is required. Gallbladder: Numerous shadowing gallstones are present. The gallbladder ismoderately distended measuring up to 11.9 cm. Gallbladder wall thicknessis within normal limits measuring 1.5 mm. No pericholecystic fluid.Sonographic Valverde sign is positive. Bile Ducts: Common bile duct is is at upper limits of normal measuring 6mm. Recommend correlation with LFTs. Right Kidney: Unremarkable. No hydronephrosis. The right kidney measuresapproximately 9.8 x 3.8 x 4.3 cm. IMPRESSION: 1. Numerous gallstones are present. No significant gallbladder wallthickening or pericholecystic fluid identified to suggest acutecholecystitis, however sonographic Valverde sign is reported positive. Ifthere is high clinical suspicion for acute cholecystitis, HIDA scan couldbe performed for further evaluation. 2. Common bile duct at upper limits of normal. Recommend correlation withLFTs. Ordered By: TIFFANY SAHA Interpreted By: Jason Martinez MD, 11/10/2024 1:33 PM us [facility] Final Resul t from Last [address] [place] [address] [facility] MEDIC[facility] Care Teams Deportation Examiner Relationship Specialty Start Date End Date Tiffany Saha FNP [address] [place] [id number] PCP - General Nurse Practitioner Family 11/10/24
--- OUTSIDE RECORDS SUMMARY | 2025-02-04 17:19 | XMS_ITS | Encounter Summary ---
Author Organization [facility] Address [address] [place] [address] Care Team Providers Care It Field Technician Name Role Phone Unavailable Primary Care Provider Unavailabl e Encounter Details Date Type Department Care Team (Late st Contact Info) Description 02/17/2002 Outpatient Historical [facility] Internal Medicine - [place] [address] [place] [phone] [place] [address] [facility] [place] [phone] Social History Tobacco Use Types Packs/Day Years Used Date Smoking Tobacco: Never Assessed Comments Unknown Sex and Gender Information Value Date Recorded Sex Assigned at Not on file Legal Sex Female 3:55 AM HYDRODYNAMICS TEACHER Gender Identity Not on file Sexual Orientation Not on file documented as of this encounter Plan of Treatment Not on file documented as of this encounter Visit Diagnoses Not on filedocumented in this encounter
--- OUTSIDE RECORDS SUMMARY | 2025-02-04 17:19 | XMS_ITS | Encounter Summary ---
Author Organization [facility] Address [address] [place] [address] Care Team Providers Care Department Traffic Freight Router Name Role Phone Unavailable Primary Care Provider Unavailabl e Encounter Details Date Type Department Care Team (Late st Contact Info) Description 05/18/2001 Outpatient Historical [facility] Internal Medicine - [place] [address] [place] [phone] [place] [address] [facility] [place] [phone] Social History Tobacco Use Types Packs/Day Years Used Date Smoking Tobacco: Never Assessed Comments Unknown Sex and Gender Information Value Date Recorded Sex Assigned at Not on file Legal Sex Female 3:55 AM RN DIABETES Gender Identity Not on file Sexual Orientation Not on file documented as of this encounter Plan of Treatment Not on file documented as of this encounter Visit Diagnoses Not on filedocumented in this encounter
--- OUTSIDE RECORDS SUMMARY | 2025-02-04 17:19 | XMS_ITS | Clinical Summary ---
Author Organization [facility] Address [address] [facility] Attn: Epic Prelude ADT GRI[place] TEE [address] Care Team Providers Care Power Generation Technician Name Role Phone Unavailable Primary Care [...] on file Legal Sex Female 3:55 AM GREEN BUILDING ARCHITECT Gender Identity Not on file Sexual Orientation [...]
--- OUTSIDE RECORDS SUMMARY | 2025-02-04 17:19 | XMS_ITS | Encounter Summary ---
Author Organization [facility] Address [address] [place] [address] Care Team Providers Care Yield Analyst Name Role Phone Unavailable Primary Care Provider Unavailabl e Encounter Details Date Type Department Care Team (Late st Contact Info) Description 05/29/2000 Outpatient Historical [facility] Internal Medicine - [place] [address] [place] [phone] [place] [address] [address] [facility] [place] [phone] Social History Tobacco Use Types Packs/Day Years Used Date Smoking Tobacco: Never Assessed Comments Unknown Sex and Gender Information Value Date Recorded Sex Assigned at Not on file Legal Sex Female 3:55 AM BARN WORKER Gender Identity Not on file Sexual Orientation Not on file documented as of this encounter Plan of Treatment Not on file documented as of this encounter Visit Diagnoses Not on filedocumented in this encounter
--- OUTSIDE RECORDS SUMMARY | 2025-02-04 17:19 | XMS_ITS | Encounter Summary ---
Author Organization [facility] Address [address] [place] [address] Care Team Providers Care Group Insurance Special Agent Name Role Phone Unavailable Primary Care Provider Unavailabl e Encounter Details Date Type Department Care Team (Late st Contact Info) Description 03/19/1998 Outpatient Historical [facility] Internal Medicine - [place] [address] [place] [address] Selina Fall MD [address] [address] Social History Tobacco Use Types Packs/Day Years Used Date Smoking Tobacco: Never Assessed Comments Unknown Sex and Gender Information Value Date Recorded Sex Assigned at Not on file Legal Sex Female 3:55 AM SUPERVISOR COOLER SERVICE Gender Identity Not on file Sexual Orientation Not on file documented as of this encounter Plan of Treatment Not on file documented as of this encounter Visit Diagnoses Not on filedocumented in this encounter
--- OUTSIDE RECORDS SUMMARY | 2025-02-04 17:19 | XMS_ITS | Encounter Summary ---
Author Organization [facility] Address [address] [place] [address] Care Team Providers Care Sweeper Brush Maker Machine Name Role Phone Unavailable Primary Care Provider Unavailabl e Encounter Details Date Type Department Care Team (Late st Contact Info) Description 01/17/2002 Outpatient Historical [facility] Internal Medicine - [place] [address] [place] [phone] [place] [address] [facility] [place] [phone] Social History Tobacco Use Types Packs/Day Years Used Date Smoking Tobacco: Never Assessed Comments Unknown Sex and Gender Information Value Date Recorded Sex Assigned at Not on file Legal Sex Female 3:55 AM FIELD SALES EXECUTIVE Gender Identity Not on file Sexual Orientation Not on file documented as of this encounter Plan of Treatment Not on file documented as of this encounter Visit Diagnoses Not on filedocumented in this encounter
--- OUTSIDE RECORDS SUMMARY | 2025-02-04 17:19 | XMS_ITS | Encounter Summary ---
Author Organization [facility] Address [address] [place] [address] Care Team Providers Care Doctor Chiropractic Name Role Phone Unavailable Primary Care Provider Unavailabl e Encounter Details Date Type Department Care Team (Late st Contact Info) Description 04/10/1999 Outpatient Historical [facility] Internal Medicine - [place] [address] [place] [phone] [place] [address] [facility] [place] [phone] Social History Tobacco Use Types Packs/Day Years Used Date Smoking Tobacco: Never Assessed Comments Unknown Sex and Gender Information Value Date Recorded Sex Assigned at Not on file Legal Sex Female 3:55 AM WALL ATTENDANT Gender Identity Not on file Sexual Orientation Not on file documented as of this encounter Plan of Treatment Not on file documented as of this encounter Visit Diagnoses Not on filedocumented in this encounter
--- OUTSIDE RECORDS SUMMARY | 2025-02-04 17:25 | XMS_ITS | Clinical Summary ---
Author Organization [facility] Address [address] [facility] [place] [address] Care Team Providers Care Gun Perforator Name Role Phone Gifty Ilene Primary Care Provider [phone] Source Comments [facility],non-owned Affiliates and Associated Physician Practices is amultiple site organization consisting of ambulatory clinics and hospital sitesin [place], [place], [place] and [place]. This disclosure is being madepursuant to the Care Everywhere program and may not contain all information available regarding this patient. Last updated 17.[facility] Allergies No known active allergies Medications * [...] on file Legal Sex Female 6:08 AM HEALTHCARE EDUCATOR Gender Identity Not on file Sexual Orientation [...] SCREENING 1955 LIPID TESTING 1955 MAMMOGRAM 1955 HEPATITIS C SCREENING 05/17/1974 DTAP/TDAP/TD VACCINES [...] patient's age to complete this topic Insurance [facility] Address: [address] [address] MEDICARE [facility] Care Teams Gun Perforator Relationship Specialty Start Date End Date Ilene Durbin DO [address] [place] [phone] PCP - General Family Medicine 07/07/21
[2025-02-04 17:29] VITALS: BP 139/82; PULSE 85; RESP 16; TEMP 36.4; O2SAT 98
== END 2025-02-04 17:49 | disposition home or self-care (01) ==
PROVIDERS: Emergency Provider Nurse Practitioner; PCP Nurse Practitioner Family
DX: H66.92 Otitis media, unspecified, left ear (principal); K13.79 Other lesions of oral mucosa; I10 Essential (primary) hypertension; E78.5 Hyperlipidemia, unspecified; E55.9 Vitamin D deficiency, unspecified; K21.9 Gastro-esophageal reflux disease without esophagitis; K31.84 Gastroparesis
CPT/HCPCS: 99213; G0463

== ENCOUNTER 2025-02-06 07:12 | Outpatient (CLI) | payer MEDICARE, SELFPAY ==
--- OUTSIDE RECORDS SUMMARY | 2025-02-06 07:15 | XMS_ITS | Encounter Summary ---
Author Organization [facility] Address [address] [place] [address] Care Team Providers Care Brushing Machine Operator Name Role Phone Unavailable Primary Care Provider Unavailabl e Encounter Details Date Type Department Care Team (Late st Contact Info) Description 03/05/1998 Outpatient Historical [facility] Internal Medicine - [place] [address] [place] [phone] [place] [address] [facility] [place] [phone] Social History Tobacco Use Types Packs/Day Years Used Date Smoking Tobacco: Never Assessed Comments Unknown Sex and Gender Information Value Date Recorded Sex Assigned at Not on file Legal Sex Female 3:55 AM AADC PLANS STAFF OFFICER Gender Identity Not on file Sexual Orientation Not on file documented as of this encounter Plan of Treatment Not on file documented as of this encounter Visit Diagnoses Not on filedocumented in this encounter
--- OUTSIDE RECORDS SUMMARY | 2025-02-06 07:15 | XMS_ITS | Encounter Summary ---
Author Organization [facility] Address [address] [place] [address] Care Team Providers Care Alum Plant Supervisor Name Role Phone Unavailable Primary Care Provider Unavailabl e Encounter Details Date Type Department Care Team (Late st Contact Info) Description 09/14/2000 Outpatient Historical [facility] Internal Medicine - [place] [address] [place] [phone] [place] [address] [facility] [place] [phone] Social History Tobacco Use Types Packs/Day Years Used Date Smoking Tobacco: Never Assessed Comments Unknown Sex and Gender Information Value Date Recorded Sex Assigned at Not on file Legal Sex Female 3:55 AM TRANSFORMATION COACH Gender Identity Not on file Sexual Orientation Not on file documented as of this encounter Plan of Treatment Not on file documented as of this encounter Visit Diagnoses Not on filedocumented in this encounter
--- OUTSIDE RECORDS SUMMARY | 2025-02-06 07:15 | XMS_ITS | Encounter Summary ---
Author Organization [facility] Address [address] [place] [address] Care Team Providers Care Glove Former Name Role Phone Unavailable Primary Care Provider Unavailabl e Encounter Details Date Type Department Care Team (Late st Contact Info) Description 07/13/1998 Outpatient Historical [facility] Internal Medicine - [place] [address] [place] [phone] [place] [address] [facility] [place] [phone] Social History Tobacco Use Types Packs/Day Years Used Date Smoking Tobacco: Never Assessed Comments Unknown Sex and Gender Information Value Date Recorded Sex Assigned at Not on file Legal Sex Female 3:55 AM MACHINIST HELPER MARINE Gender Identity Not on file Sexual Orientation Not on file documented as of this encounter Plan of Treatment Not on file documented as of this encounter Visit Diagnoses Not on filedocumented in this encounter
--- OUTSIDE RECORDS SUMMARY | 2025-02-06 07:15 | XMS_ITS | Encounter Summary ---
Author Organization [facility] Address [address] [place] [address] Care Team Providers Care Retail Presentation Specialist Name Role Phone Unavailable Primary Care Provider Unavailabl e Encounter Details Date Type Department Care Team (Late st Contact Info) Description 01/17/2002 Outpatient Historical [facility] Internal Medicine - [place] [address] [place] [phone] [place] [address] [facility] [place] [phone] Social History Tobacco Use Types Packs/Day Years Used Date Smoking Tobacco: Never Assessed Comments Unknown Sex and Gender Information Value Date Recorded Sex Assigned at Not on file Legal Sex Female 3:55 AM BREAD DUMPER Gender Identity Not on file Sexual Orientation Not on file documented as of this encounter Plan of Treatment Not on file documented as of this encounter Visit Diagnoses Not on filedocumented in this encounter
--- OUTSIDE RECORDS SUMMARY | 2025-02-06 07:15 | XMS_ITS | Encounter Summary ---
Author Organization [facility] Address [address] [place] [address] Care Team Providers Care Applications Development Consultant Name Role Phone Unavailable Primary Care Provider Unavailabl e Encounter Details Date Type Department Care Team (Late st Contact Info) Description 08/10/1998 Outpatient Historical [facility] EstevezAric MD [address] [place] [address] Diarrhea (Primary Dx) Social History Tobacco Use Types Packs/Day Years Used Date Smoking Tobacco: Never Assessed Comments Unknown Sex and Gender Information Value Date Recorded Sex Assigned at Not on file Legal Sex Female 3:55 AM MEAT AND SEAFOOD MANAGER Gender Identity Not on file Sexual Orientation Not on file documented as of this encounter Plan of Treatment Not on file documented as of this encounter Visit Diagnoses Diagnosis Diarrhea- Primary documented in this encounter
--- OUTSIDE RECORDS SUMMARY | 2025-02-06 07:15 | XMS_ITS | Encounter Summary ---
Author Organization [facility] Address [address] [place] [address] Care Team Providers Care Bung Dropper Name Role Phone Unavailable Primary Care Provider Unavailabl e Encounter Details Date Type Department Care Team (Late st Contact Info) Description 01/15/2001 Outpatient Historical [facility] Internal Medicine - [place] [address] [place] [address] [place] [address] [place] [address] Social History Tobacco Use Types Packs/Day Years Used Date Smoking Tobacco: Never Assessed Comments Unknown Sex and Gender Information Value Date Recorded Sex Assigned at Not on file Legal Sex Female 3:55 AM GSA COORDINATOR Gender Identity Not on file Sexual Orientation Not on file documented as of this encounter Plan of Treatment Not on file documented as of this encounter Visit Diagnoses Not on filedocumented in this encounter
--- OUTSIDE RECORDS SUMMARY | 2025-02-06 07:15 | XMS_ITS | Encounter Summary ---
Author Organization [facility] Address [address] [place] [address] Care Team Providers Care Rattle Leak And Squeak Repairer Name Role Phone Unavailable Primary Care Provider Unavailabl e Encounter Details Date Type Department Care Team (Late st Contact Info) Description 04/10/1999 Outpatient Historical [facility] Internal Medicine - [place] [address] [place] [phone] [place] [address] [facility] [place] [address] Social History Tobacco Use Types Packs/Day Years Used Date Smoking Tobacco: Never Assessed Comments Unknown Sex and Gender Information Value Date Recorded Sex Assigned at Not on file Legal Sex Female 3:55 AM [place] STAFF Gender Identity Not on file Sexual Orientation Not on file documented as of this encounter Plan of Treatment Not on file documented as of this encounter Visit Diagnoses Not on filedocumented in this encounter
--- OUTSIDE RECORDS SUMMARY | 2025-02-06 07:15 | XMS_ITS | Encounter Summary ---
Author Organization [facility] Address [address] [place] [address] Care Team Providers Care Forest Fire Prevention Manager Name Role Phone Unavailable Primary Care Provider Unavailabl e Encounter Details Date Type Department Care Team (Late st Contact Info) Description 12/24/1998 Outpatient Historical [facility] Internal Medicine - [place] [address] [place] [phone] [place] [address] [facility] [place] [phone] Social History Tobacco Use Types Packs/Day Years Used Date Smoking Tobacco: Never Assessed Comments Unknown Sex and Gender Information Value Date Recorded Sex Assigned at Not on file Legal Sex Female 3:55 AM PURCHASING EXPEDITOR Gender Identity Not on file Sexual Orientation Not on file documented as of this encounter Plan of Treatment Not on file documented as of this encounter Visit Diagnoses Not on filedocumented in this encounter
--- OUTSIDE RECORDS SUMMARY | 2025-02-06 07:15 | XMS_ITS | Encounter Summary ---
Author Organization [facility] Address [address] [place] [address] Care Team Providers Care Personal Care Aid Name Role Phone Unavailable Primary Care Provider Unavailabl e Encounter Details Date Type Department Care Team (Late st Contact Info) Description 02/17/2002 Outpatient Historical [facility] Internal Medicine - [place] [address] [place] [phone] [place] [address] [facility] [place] [address] Social History Tobacco Use Types Packs/Day Years Used Date Smoking Tobacco: Never Assessed Comments Unknown Sex and Gender Information Value Date Recorded Sex Assigned at Not on file Legal Sex Female 3:55 AM SPACE BUYER Gender Identity Not on file Sexual Orientation Not on file documented as of this encounter Plan of Treatment Not on file documented as of this encounter Visit Diagnoses Not on filedocumented in this encounter
--- OUTSIDE RECORDS SUMMARY | 2025-02-06 07:15 | XMS_ITS | Clinical Summary ---
Author Organization [facility] Address [address] [facility] Attn: Epic Prelude ADT [place] [address] Care Team Providers Care Warp Knitter Name Role Phone Unavailable Primary Care Provider [...] on file Legal Sex Female 3:55 AM MATTRESS AND FOUNDATION SEWER Gender Identity Not on file Sexual Orientation [...]
--- OUTSIDE RECORDS SUMMARY | 2025-02-06 07:15 | XMS_ITS | Clinical Summary ---
Author Organization [facility] Address [address] [place] [address] Care Team Providers Care Prevention Coordinator Name Role Phone Tiffany Saha Primary Care Provider Encounters Date Type Department Care Team Description 11/10/2024 12:54 PM CDT - 11/10/2024 11:59 PM CDT Hospital Encounter [facility] [address] [place] [address] Tiffany Saha FNP Discharge Disposition: Home or [...] 1:33 PM Narrative 11/10/2024 1:36 PM CDT [facility] [address] [place] [address] EXAM: ABDOMINAL ULTRASOUND LIMITED INDICATION: RUQ abdominal [...] Procedure Note Jason Martinez MD - 11/10/2024 [facility] [address] [place] [address] EXAM: ABDOMINAL ULTRASOUND LIMITED INDICATION: RUQ abdominal [...] Resul t from Last 3 [place] [address] [facility] MEDICARE Care Teams Prevention Coordinator Relationship Specialty Start Date End Date Tiffany Saha FNP [address] [place] [address] PCP - General Nurse Practitioner Family 11/10/24
--- OUTSIDE RECORDS SUMMARY | 2025-02-06 07:15 | XMS_ITS | Encounter Summary ---
Author Organization [facility] Address [address] [place] [address] Care Team Providers Care Technical Communication Teacher Name Role Phone Ilene Durbin DO Primary Care Provider Encounter Details Date Type Department Care Team (Late st Contact Info) Description 07/07/2021 Ophth Exam [facility] [address] [place] [address] Champ Islas IV, DO [address] [place] [address] Social History Tobacco Use Types Packs/Day Years Used Date Smoking Tobacco: Never Assessed Comments Unknown Sex and Gender Information Value Date Recorded Sex Assigned at Not on file 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
--- OUTSIDE RECORDS SUMMARY | 2025-02-06 07:15 | XMS_ITS | Encounter Summary ---
Author Organization [facility] Address [address] [place] [address] Care Team Providers Care Tubing Supervisor Name Role Phone Unavailable Primary Care Provider Unavailabl e Encounter Details Date Type Department Care Team (Late st Contact Info) Description 05/29/2000 Outpatient Historical [facility] Internal Medicine - [place] [address] [place] [phone] [place] [address] [facility] [place] [address] Social History Tobacco Use Types Packs/Day Years Used Date Smoking Tobacco: Never Assessed Comments Unknown Sex and Gender Information Value Date Recorded Sex Assigned at Not on file 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
--- OUTSIDE RECORDS SUMMARY | 2025-02-06 07:15 | XMS_ITS | Encounter Summary ---
Author Organization [facility] Address [address] [place] [address] Care Team Providers Care Diagnostic Tech Name Role Phone Unavailable Primary Care Provider Unavailabl e Encounter Details Date Type Department Care Team (Late st Contact Info) Description 07/23/1998 Outpatient Historical [facility] Internal Medicine - [place] [address] [place] [phone] [place] [address] [address] 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
--- OUTSIDE RECORDS SUMMARY | 2025-02-06 07:15 | XMS_ITS | Encounter Summary ---
Author Organization [facility] Address 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
--- OUTSIDE RECORDS SUMMARY | 2025-02-06 07:15 | XMS_ITS | Clinical Summary ---
Author Organization [facility] Address [address] [place], [address] [address] Phone Care Team Providers Care Research Program Coordinator Name Role Phone Nikolai Mott DO Unavailable [phone] Allergies No known active allergies Medications [...] Comments Blood Pressure 144/96 04/05/2015 1:20 PM PRE CERTIFICATION SPECIALIST Pulse 93 04/05/2015 1:20 PM PRE CERTIFICATION SPECIALIST Temperature 36.4 C (97.6 F) 04/05/2015 1:20 PM PRE CERTIFICATION SPECIALIST Respiratory Rate 20 04/05/2015 1:20 PM PRE CERTIFICATION SPECIALIST Oxygen Saturation 94% 04/05/2015 1:20 PM PRE CERTIFICATION SPECIALIST Inhaled Oxygen Concentration - - Weight 72.1 kg (159 lb) 04/05/2015 1:20 PM PRE CERTIFICATION SPECIALIST Height 147.3 cm (4' 10) 04/05/2015 1:20 PM PRE CERTIFICATION SPECIALIST Body Mass Index 33.23 04/05/2015 1:20 PM PRE CERTIFICATION SPECIALIST Plan of Treatment Health Maintenance Due Date [...] Most Recently Relevant to Health Maintenance Insurance [facility] Care Teams Research Program Coordinator Relationship Specialty Start Date End Date Nikolai Mott DO Gastroenterology 01/17/15
--- OUTSIDE RECORDS SUMMARY | 2025-02-06 07:15 | XMS_ITS | Encounter Summary ---
Author Organization [facility] Address [address] [place] [address] Care Team Providers Care Bun Icer Name Role Phone Unavailable Primary Care Provider Unavailabl e Encounter Details Date Type Department Care Team (Late st Contact Info) Description 05/18/2001 Outpatient Historical [facility] Internal Medicine - [place] [address] [place] [address] [place] [address] [facility] [place] [address] Social History Tobacco Use Types Packs/Day Years Used Date Smoking Tobacco: Never Assessed Comments Unknown Sex and Gender Information Value Date Recorded Sex Assigned at Not on file Legal 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
[2025-02-07 09:08] LABS: Fats, Neutral Normal (.); Fats, Total Normal (.)
[2025-02-08 15:09] LABS: Pancreatic Elastase, Fecal 385 (>200)
[2025-02-09 00:07] LABS: Calprotectin, Fecal 12 ug/g (0-120)
== END 2025-02-06 07:13 | disposition home or self-care (01) ==
PROVIDERS: PCP Nurse Practitioner Family; Visit Provider Nurse Practitioner Family
DX: K80.20 Calculus of gallbladder without cholecystitis without obstruction (principal); R19.7 Diarrhea, unspecified; R10.11 Right upper quadrant pain
CPT/HCPCS: 82653; 82705; 83993; 87045; 87046; 87177; 87427